=== PATIENT | female | born 1965 | race Caucasian/White ===

== ENCOUNTER → 2016-10-15 | Outpatient (CLI) | payer BC ==
--- NOTE | 2016-10-20 07:55 | MM ---
Reason for exam: screening (asymptomatic). Last mammogram was performed 1 year ago. History: Patient is postmenopausal. Family history of premenopausal breast cancer in sister at age 49. Took hormonal contraceptives for 6 years beginning at age 25. Physical Findings: A clinical breast exam by your physician is recommended on an annual basis and results should be correlated with mammographic findings. MG Screening Mammo w CAD Bilateral CC and MLO view(s) were taken. Prior study comparison: October 10, 2015, bilateral MG screening mammo w CAD. August 31, 2014, bilateral MG screening mammo w CAD. June 08, 2011, bilateral digital screening mammo w/CAD. The breast tissue is heterogeneously dense. This may lower the sensitivity of mammography. No significant changes when compared with prior studies. ASSESSMENT: Negative, BI-RAD 1 RECOMMENDATION: Routine screening mammogram of both breasts in 1 year.
== END | disposition home or self-care (01) ==
LOC: RADMAMWWP 15:07
PROVIDERS: ATTEND Obstetrics & Gynecology
DX: Z12.31 Encounter for screening mammogram for malignant neoplasm of breast (principal); Z80.3 Family history of malignant neoplasm of breast

== ENCOUNTER → 2017-10-27 | Outpatient (CLI) | payer BC ==
--- NOTE | 2017-10-27 11:43 | XR ---
EXAMINATION TYPE: XR elbow complete LT DATE OF EXAM: 10/27/2017 COMPARISON: NONE HISTORY: Pain FINDINGS: Three views of the elbow demonstrate no pathologic joint effusion. The osseous structures are intact . There is no acute fracture or dislocation. Tiny bony density is seen adjacent to the medial aspec t of the joint which could be related the patient's history of previous trauma. IMPRESSION: 1. No acute fracture or dislocation. If symptoms persist follow-up study in 7 to 10 days could be ob tained.
== END | disposition home or self-care (01) ==
LOC: RADXRMAIN 11:24
PROVIDERS: ATTEND Family Medicine
DX: M25.522 Pain in left elbow (principal)

== ENCOUNTER → 2017-11-29 | Outpatient (CLI) | payer BC ==
--- NOTE | 2017-11-30 13:57 | MM ---
Reason for exam: screening (asymptomatic). Last mammogram was performed 1 year and 1 month ago. History: Patient is postmenopausal. Family history of premenopausal breast cancer in sister at age 49. Took hormonal contraceptives for 6 years beginning at age 25. Physical Findings: A clinical breast exam by your physician is recommended on an annual basis and results should be correlated with mammographic findings. MG Screening Mammo w CAD Bilateral CC and MLO view(s) were taken. Prior study comparison: October 15, 2016, bilateral MG screening mammo w CAD. October 10, 2015, bilateral MG screening mammo w CAD. The breast tissue is heterogeneously dense. This may lower the sensitivity of mammography. There is no discrete abnormality. ASSESSMENT: Negative, BI-RAD 1 RECOMMENDATION: Routine screening mammogram of both breasts in 1 year.
== END | disposition home or self-care (01) ==
LOC: RADMAMWWP 14:49
PROVIDERS: ATTEND Family Medicine
DX: Z12.31 Encounter for screening mammogram for malignant neoplasm of breast (principal)
CPT/HCPCS: 77067

== ENCOUNTER → 2019-08-09 | Outpatient (CLI) | payer BC ==
[~2019-08-09] MED LIST: REGADENOSON 0.4 MG/5 ML SYRINGE IV ONE
--- NOTE | 2019-08-09 08:08 | US ---
"EXAMINATION TYPE: US gallbladder DATE OF EXAM: 08/09/2019 COMPARISON: NONE CLINICAL HISTORY: R07.9 Chest pain, R10.11 R upper quad pain. EXAM MEASUREMENTS: Liver Length: 18.3 cm Gallbladder Wall: 0.7 cm CBD: 0.5 cm Right Kidney: 10.1 x 4.2 x 4.6 cm Pancreas: Tail obscured by overlying bowel gas, visualized portions appear wnl Liver: Heterogeneous. Measuring upper limits of normal Gallbladder: Multiple stones visualized. Wall appears thickened with some possible pericholecystic f luid Evidence for sonographic Jacobo's sign: No CBD: wnl Right Kidney: No hydronephrosis or masses seen IMPRESSION: Cholelithiasis with gallbladder wall thickening and trace pericholecystic fluid questione d however the common bile duct is within normal limits of size therefore findings are cortical for ac [place] cholecystitis. Correlate with serum laboratory values and physical examination as the sonographic Jacobo sign is negative. A Yellow level critical message alert has been initiated for Arya Jones MD via the [employer] 36 0 | Critical Results System on 08/09/2019 8:05 AM. This message alert has been sent to Arya Jones MD via the preferences provided by the clinician for the receipt of Radiology Critical Findings. [facility] ID [id number]."
--- NOTE | 2019-08-09 11:25 | NM ---
"EXAMINATION TYPE: NM stress lexiscan cardiolite DATE OF EXAM: 08/09/2019 COMPARISON: NONE HISTORY: Chest pain TECHNIQUE: After the intravenous administration of 10.15 mCi Tc 99m Sestamibi - Cardiolite resting S PECT images acquired 45 minutes post injection. The patient received 0.4mg Lexiscan, 27.4 mCi Tc 99m Sestamibi - Stress images obtained [address] injection FINDINGS: Review of stress and rest SPECT images demonstrates decreased radio pharmaceutical uptake along the a nterior wall left ventricle on stress and rest images, level cardiac apex there is some decreased upt aneesh on stress as compared to rest images. Gated analysis shows normal wall motion with an estimated left ventricular ejection fraction of 56 %. 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 This message alert has been sent to Arya oJnes MD via the preferences provided by the clinician for the receipt of Radiology Critical Findings. [facility] [id number]."
--- NOTE | 2019-08-09 18:14 | EST ---
EXERCISE STRESS AGE: 53 SEX: F HT: WT: PROTOCOL: Lexiscan Cardiolite Stress Test HEART RATE REST: 71 BLOOD PRESSURE REST: 140/90 MAXIMUM HEART RATE ACHIEVED: 95 MAXIMUM BLOOD PRESSURE: 140/90 INDICATION: Chest pain. CLINICAL INFORMATION: STRESS DATA: Heart rate is 71, blood pressure is 140/90 mmHg. Baseline EKG showed sinus mechanism; 0.4 mg of Lexiscan given over 15 seconds per protocol. Max heart rate was 95 beats per minute. Maximum pressure was 140/90 mmHg. Clinically, the patient did not have any symptoms, and the EKG did not show any significant ST- or T-wave abnormalities concerning for ischemia. CONCLUSION: 1. Nondiagnostic electrocardiogram stress testing in response to Lexiscan. 2. Please follow up on the Cardiolite portion on separate report from Radiology Department. MMODL / IJN: [id number] /
== END | disposition home or self-care (01) ==
LOC: RADUSWWP 07:25
PROVIDERS: ATTEND Family Medicine
DX: K80.20 Calculus of gallbladder without cholecystitis without obstruction (principal); R07.9 Chest pain, unspecified
CPT/HCPCS: 93017; 76705; 78452; A9500; J2785

== ENCOUNTER 2019-08-10 15:40 | Observation (INO) | payer BC ==
--- NOTE | 2019-08-10 17:35 | XR ---
EXAMINATION TYPE: XR chest 1V portable DATE OF EXAM: 08/10/2019 COMPARISON: 06/15/2019 HISTORY: Short of breath TECHNIQUE: FINDINGS: Heart and mediastinum are normal. Lungs are clear. Diaphragm is normal. Bony thorax appears normal. IMPRESSION: Normal chest.
[2019-08-10 17:43] LABS: Basophils % (A) 1 %; Eosinophils # (A) 0.2 k/uL (0-0.7); Eosinophils % (A) 4 %; HCT 37.8 % (34.0-46.0); HGB 12.3 gm/dL (11.4-16.0); Lymphocytes % (A) 35 %; MCH 27.2 pg (25.0-35.0); MCHC 32.4 g/dL (31.0-37.0); MCV 83.9 fL (80.0-100.0); Mean Platelet Volume 6.8; Monocytes # (A) 0.3 k/uL (0-1.0); Monocytes % (A) 5 %; Neutrophils # (A) 3.1 k/uL (1.3-7.7); Neutrophils % (A) 53 %; Platelet Count 321 k/uL (150-450); RBC 4.51 m/uL (3.80-5.40); WBC 5.8 k/uL (3.8-10.6)
[2019-08-10 17:52] LABS: Albumin 4.5 g/dL (3.5-5.0); Calcium 9.5 mg/dL (8.4-10.2); Potassium 4.5 mmol/L (3.5-5.1); Total Bilirubin 0.3 mg/dL (0.2-1.3); Total Protein 7.5 g/dL (6.3-8.2)
[2019-08-10] MEDS: SODIUM CHLORIDE 0.9% 1,000 ML IV SCH (18:17)
[2019-08-10 19:12] LABS: Appearance,Urine Clear (Clear); Bilirubin,Urine Negative (Negative); Blood,Urine Negative (Negative); Color,Urine Light Yellow; Glucose,Urine (UA) Negative (Negative); Ketones,Urine Negative (Negative); Leukocyte Esterase,Urine Negative (Negative); Nitrite,Urine Negative (Negative); PH, Urine 6.5 (5.0-8.0); Protein,Urine Negative (Negative); Specific Gravity,Urine 1.018 (1.001-1.035); Urobilinogen,Urine <2.0 mg/dL (<2.0)
[2019-08-10] MEDS: HYDROcodone/APAP 7.5-325MG 1 EACH TAB PO SCH (21:14)
[2019-08-11] MEDS: ALBUTEROL NEBULIZED 2.5 MG/3 ML INHALATION PRN ×2 (02:23→15:49)
[2019-08-11] MEDS: SODIUM CHLORIDE 0.9% 1,000 ML IV SCH ×2 (06:21→21:31)
[2019-08-11] MEDS ORDERED: SODIUM CHLORIDE 0.9% 1,000 ML IV ONE (08:24)
[2019-08-11] MEDS: MONTELUKAST 10 MG TAB PO SCH (09:16)
[2019-08-11] MEDS ORDERED: NITROGLYCERIN SL TABS 0.4 MG TAB SUBLINGUAL PRN (09:43)
[2019-08-11] MEDS ORDERED: ATORVASTATIN 80 MG TAB PO STA (09:43)
[2019-08-11] MEDS ORDERED: ASPIRIN 325 MG TAB PO STA (09:43)
[2019-08-11] MEDS ORDERED: ALPRAZolam 0.25 MG TAB PO PRN (09:43)
[2019-08-11] MEDS ORDERED: ALPRAZolam 0.5 MG TAB PO PRN (09:43)
[2019-08-11] MEDS ORDERED: ACETAMINOPHEN IV (For NPO) 1,000 MG in EMPTY BAG 1 BAG IVPB STA (09:49)
--- NOTE | 2019-08-11 09:51 | P.CRDCN ---
History of Present Illness History of present illness: HISTORY OF PRESENTING ILLNESS This is a pleasant 53-year-old female past medical history significant for asthma and borderline hypertension not currently on medication. She denies prior history of coronary artery disease and does not follow in the office with a health and wellness director. We have been asked to see in consultation for abnormal stress test and chest pain. She was sent to the hospital on advice of her primary care physician secondary to an abnormal stress test. She underwent a Lexiscan stress test August 08 revealing decreased radiopharmaceutical uptake along the anterior wall of the LV and stress and rest with evidence of decreased uptake on stress. Suggestive of prior infarct along with pharmacologically induced selena-infarct LV ischemia. She states she was sent for the stress test on advice of her PCP secondary to an episode of chest discomfort she experienced last week. She states she was at work after coming back from lunch and felt a pressure burning sensation in the upper anterior mid sternal region of the chest. There was no radiation through to the back, down the arm, into the neck or the jaw. The discomfort persisted for approximately 3-4 hours with normal aggravating or alleviating factors. She had no associated shortness of breath, nausea, v omiting, diaphoresis, palpitations or dizziness. She has had no further episodes of chest discomfort since that time. She also had no associated abdominal pain. She states she does have a history of hiatal hernia status post Elizabet fundoplication. DIAGNOSTICS EKG reveals sinus mechanism with nonspecific abnormalities noted in the inferior leads. Chest x-ray reveals no evidence of acute cardiopulmonary process. Laboratory reviewed, CBC unremarkable, sodium 140, potassium 4.5, creatinine 1.17 with a GFR 54, cardiac enzymes negative 1. She takes no daily cardiac medications. REVIEW OF SYSTEMS At the time of my exam: CONSTITUTIONAL: Denies fever or chills. CARDIOVASCULAR: Denies chest pain, shortness of breath, orthopnea, PND or palpitations. RESPIRATORY: Denies cough. GASTROINTESTINAL: Denies abdominal pain, diarrhea, constipation, nausea or vomiting. MUSCULOSKELETAL: Denies myalgias. NEUROLOGIC: Denies numbness, tingling or weakness. ENDOCRINE: Denies fatigue, weight change, polydipsia or polyurina. GENITOURINARY: Denies burning, hematuria or urgency with micturation. HEMATOLOGIC: Denies history of anemia or bleeding. PHYSICAL EXAMINATION Blood pressure 160/90 heart rate 78 afebrile and maintaining oxygen saturation on room air. CONSTITUTIONAL: No apparent distress. HEENT: Head is normocephalic. Pupils are equal, round. Sclerae anicteric. Mucous membranes of the mouth are moist. No JVD. No carotid bruit. CHEST EXAMINATION: Lungs are clear to auscultation. No chest wall tenderness is noted on palpation or with deep breathing. HEART EXAMINATION: Regular rate and rhythm. S1, S2 heard. No murmurs, gallops or rub. ABDOMEN: Soft, nontender. Positive bowel sounds. EXTREMITIES: 2+ peripheral pulses, no lower extremity edema and no calf tenderness. NEUROLOGIC EXAMINATION: Patient is awake, alert and oriented x3. ASSESSMENT Chest pain with abnormal nuclear stress test History of asthma Family history of premature coronary artery disease with her brother suffering myocardial infarction causing PLAN Recommend proceeding with coronary angiography to assess for underlying coronary artery disease given her symptoms and abnormal stress test. I have discussed the risks, benefits and alternative therapies for the above-mentioned procedure and for both sedation/analgesia as well as necessary blood product administration, if indicated, as they pertain to this patient. The patient has indicated understanding and acceptance of the risks and procedures discussed. Questions have been answered appropriately and she is agreeable to move forward with the above-stated procedure. Obtain 2-D echocardiogram and Doppler study to assess cardiac structure and fun ction. Further recommendations to follow based upon clinical course. Thank you kindly for this consultation. Nurse Practitioner note has been reviewed, I agree with a documented findings and plan of care. Patient was seen and examined. Past Medical History Past Medical History: Asthma, GERD/Reflux, Hypertension Additional Past Medical History / Comment(s): doctor watching BP-no rx, HIATAL HERNIA History of Any Multi-Drug Resistant Organisms: MRSA Date of last positivie culture/infection: 7-10 yrs ago MDRO Source:: boil on buttocks Past Surgical History: Bladder Surgery, Orthopedic Surgery, Tubal Ligation, Uterine Ablation Additional Past Surgical History / Comment(s): eri carpal tunnel, cysts removed from both hands, EGD, D & C IN OCTOBER 2015 Past Anesthesia/Blood Transfusion Reactions: No Reported Reaction Past Psychological History: No Psychological Hx Reported Smoking Status: Never smoker Past Alcohol Use History: Occasional Past Drug Use History: None Reported - Past Family History Mother Family Medical History: Cancer, Diabetes Mellitus Sister(s) Family Medical History: Cancer Medications and Allergies Home Medications Medication Instructions Recorded Confirmed Type Albuterol Inhaler [Ventolin Hfa 2 puff INHALATION RT-Q6H PRN 08/29/15 08/10/19 History Inhaler] Cholecalciferol [Vitamin D3 (25 1,000 unit PO DAILY 08/29/15 08/10/19 History Mcg = 1000 Iu)] Ibuprofen [Motrin] 800 mg PO TID PRN 08/29/15 08/10/19 History Montelukast Sodium [Singulair] 10 mg PO DAILY 01/30/16 08/10/19 History Albuterol Nebulized [Ventolin 2.5 mg INHALATION RT-QID PRN 06/15/19 08/10/19 History Nebulized] Cyanocobalamin (Vitamin B-12) 1,000 mcg PO DAILY 06/15/19 08/10/19 History [Vitamin B-12] HYDROcodone/APAP 7.5-325MG [[place] 1 tab PO TID 06/15/19 08/10/19 History 7.5-325] Allergies Allergy/AdvReac Type Severity Reaction Status Date / Time No Known Allergies Allergy Verified 08/10/19 20:26 Physical Exam Vitals: Vital Signs Temp Pulse Pulse Resp BP Pulse Ox 08/11/19 09:07 98.4 F 78 16 160/90 97 08/11/19 07:27 98 F 64 16 144/88 96 08/11/19 02:37 60 08/11/19 02:21 60 08/11/19 02:11 97.4 F L 61 18 126/86 96 08/11/19 00:00 16 08/10/19 21:13 98.3 F 66 18 121/78 96 08/10/19 20:10 70 18 Intake and Output 08/10/19 08/11/19 08/11/19 22:59 06:59 14:59 Other: Voiding Method Toilet Toilet Toilet # Voids 1 Weight 86.636 kg Results 08/10/19 17:07 08/10/19 17:07 Cardiac Enzymes 08/10/19 08/10/19 Range/Units 17:07 17:16 AST 25 (14-36) U/L Troponin I <0.012 (0.000-0.034) ng/mL CBC 03/19/20 Range/Units 17:07 WBC 5.8 (3.8-10.6) k/uL RBC 4.51 (3.80-5.40) m/uL Hgb 12.3 (11.4-16.0) gm/dL Hct 37.8 (34.0-46.0) % Plt Count 321 (150-450) k/uL Comprehensive Metabolic Panel 08/10/19 Range/Units 17:07 Sodium 140 (137-145) mmol/L Potassium 4.5 (3.5-5.1) mmol/L Chloride 108 H (98-107) mmol/L Carbon Dioxide 24 (22-30) mmol/L BUN 22 H (7-17) mg/dL Creatinine 1.17 H (0.52-1.04) mg/dL Glucose 107 H (74-99) mg/dL Calcium 9.5 (8.4-10.2) mg/dL AST 25 (14-36) U/L ALT 18 (4-34) U/L Alkaline Phosphatase 59 (38-126) U/L Total Protein 7.5 (6.3-8.2) g/dL Albumin 4.5 (3.5-5.0) g/dL Current Medications Generic Name Dose Route Start Last Admin Trade Name Freq PRN Reason Stop Dose Admin Hydrocodone Bitart/Acetaminophen 1 each 08/10/19 22:00 08/10/19 21:14 [place] 7.5-325 PO Not Given TID ROSITA Albuterol Sulfate 2.5 mg 08/10/19 17:09 08/11/19 02:23 Ventolin Nebulized INHALATION 2.5 mg RT-QID PRN Administration Shortness Of Breath Sodium Chloride 1,000 mls @ 75 mls/hr 08/10/19 16:30 08/11/19 06:21 Saline 0.9% IV 75 mls/hr .[id number] ROSITA Administration Cefazolin Sodium 1,000 mg/ 50 mls @ 100 mls/hr 08/10/19 17:00 08/10/19 23:51 Sodium Chloride IVPB 100 mls/hr Q8HR ROSITA Administration Montelukast Sodium 10 mg 08/11/19 09:00 08/11/19 09:16 Singulair PO Not Given DAILY ROSITA Intake and Output 08/10/19 08/11/19 08/11/19 22:59 06:59 14:59 Other: Voiding Method Toilet Toilet Toilet # Voids 1 Weight 86.636 kg 08/10/19 17:07 08/10/19 17:07
[2019-08-11] MEDS: HYDROcodone/APAP 7.5-325MG 1 EACH TAB PO SCH ×3 (10:11→21:33)
[2019-08-11] MEDS ORDERED: MIDAZOLAM 2 MG/2 ML VIAL IVP ONE (10:25)
[2019-08-11] MEDS ORDERED: LIDOCAINE 1% INJ 10MG/ML (20 ML MDV) SQ ONE (10:27)
[2019-08-11] MEDS ORDERED: VERAPAMIL SYRINGE (5 MG/10 ML) INTRAARTER ONE ×2 (10:28→10:35)
[2019-08-11] MEDS ORDERED: HEPARIN SODIUM 1,000 UN/ML (10ML VL) IV ONE (10:33)
[2019-08-11] MEDS ORDERED: HYDROmorphone 1 MG/ML 1 ML SYRINGE IVP ONE ×5 (10:33→14:50)
[2019-08-11] MEDS ORDERED: IV FLUID CONTINUATION 1,000 ML IV ONE (10:34)
[2019-08-11] MEDS ORDERED: IOPAMIDOL-370 125ML BTL INJ ONE (10:35)
[2019-08-11] MEDS ORDERED: RX INFO: IV CONTRAST WAS GIVEN 1 EACH MISC MISCELLANE PRN (10:40)
[2019-08-11] MEDS ORDERED: SODIUM CHLORIDE 0.9% 1,000 ML IV SCH (10:45)
--- NOTE | 2019-08-11 10:46 | P.PCN ---
Date of Procedure: 08/11/19 Operative Findings: CARDIAC CATHETERIZATION PERFORMING PHYSICIAN: Marquez Davila MD, RPVI PROCEDURE PERFORMED: 1. Selective right and left coronary angiogram 2. Left heart catheterization INDICATION: This is a pleasant 53-year-old female patient was very significant family history of coronary artery disease was experiencing symptoms of chest discomfort and she underwent myocardial perfusion imaging stress test and that revealed reversible defect anteriorly. Because of that heart catheterization was advised COMPLICATION: None APPROACH: Right radial artery LEVEL OF SEDATION: Moderate with sedation length of 17 minutes PROCEDURE DESCRIPTION: After obtaining an informed consent, the patient was brought to cardiac factory laborer. Local anesthesia was performed using lidocaine subcutaneously. The right radial artery was cannulated using Seldinger technique, the guidewire passed easily, following that we advanced a 5-Filipino sheath dilator assembly, the wire and dilator were removed and sheath was flushed. Following that, 2 mg of verapamil along with 5000 unit heparin were given. Selective right and left coronary angiogram using a 6-Filipino JR4 and JL 3.5 catheters. Following that we did left heart catheterization using 6-Filipino pigtail catheter. The procedure was completed there was no complication. SELECTIVE CORONARY ANGIOGRAM: The right coronary artery: Is a large caliber vessel and a dominant vessel. Its angiographically normal. Left main: It is a large caliber vessel. Its angiographically normal. Bifurcates into left circumflex and LAD The left circumflex: The LCx is a large caliber vessel and nondominant vessel. Its angiographically normal. Gives rises into 2 obtuse marginal branches and they appeared to be angiographically normal The left anterior descending artery: Is a large caliber vessel. Its angiographically normal. Gives rises into 2 diagonal branches and appeared to be angiographically normal HEMODYNAMICS: The LVEDP was 12-16 mmHg without significant gradient across aortic valve CONCLUSION: Normal coronary angiogram POSTPROCEDURE MANAGEMENT: 1. Medical treatment 2. Follow-up with the patient
--- NOTE | 2019-08-11 13:19 | P.GSCN ---
History of Present Illness Consult date: 08/11/19 Reason for Consult: Right upper quadrant pain History of present illness: This a 53-year-old female admitted to Dr. Arya Malik service. Patient was admitted for acute cholecystitis. Patient with recurrent pain. Her ultrasound shows evidence of cholelithiasis and thickened gallbladder wall and pericholecystic fluid. Past Medical History Past Medical History: Asthma, GERD/Reflux, Hypertension Additional Past Medical History / Comment(s): doctor watching BP-no rx, HIATAL HERNIA History of Any Multi-Drug Resistant Organisms: MRSA Year Discovered:: 7-10 yrs ago MDRO Source:: boil on buttocks Past Surgical History: Bladder Surgery, Orthopedic Surgery, Tubal Ligation, [place] rine Ablation Additional Past Surgical History / Comment(s): eri carpal tunnel, cysts removed from both hands, EGD, D & C IN OCTOBER 2015 Past Anesthesia/Blood Transfusion Reactions: No Reported Reaction Past Psychological History: No Psychological Hx Reported Smoking Status: Never smoker Past Alcohol Use History: Occasional Past Drug Use History: None Reported - Past Family History Mother Family Medical History: Cancer, Diabetes Mellitus Sister(s) Family Medical History: Cancer Medications and Allergies Home Medications Medication Instructions Recorded Confirmed Type Albuterol Inhaler [Ventolin Hfa 2 puff INHALATION RT-Q6H PRN 08/29/15 08/10/19 History Inhaler] Cholecalciferol [Vitamin D3 (25 1,000 unit PO DAILY 08/29/15 08/10/19 History Mcg = 1000 Iu)] Ibuprofen [Motrin] 800 mg PO TID PRN 08/29/15 08/10/19 History Montelukast Sodium [Singulair] 10 mg PO DAILY 01/30/16 08/10/19 History Albuterol Nebulized [Ventolin 2.5 mg INHALATION RT-QID PRN 06/15/19 08/10/19 History Nebulized] Cyanocobalamin (Vitamin B-12) 1,000 mcg PO DAILY 06/15/19 08/10/19 History [Vitamin B-12] HYDROcodone/APAP 7.5-325MG [[place] 1 tab PO TID 06/15/19 08/10/19 History 7.5-325] Allergies Allergy/AdvReac Type Severity Reaction Status Date / Time No Known Allergies Allergy Verified 08/10/19 20:26 Surgical - Exam Vital Signs Pulse Resp 70 18 08/10/19 20:10 08/10/19 20:10 - General well developed, well nourished, moderate distress - Eyes PERRL - ENT normal pinna - Neck no masses - Respiratory normal expansion - Cardiovascular Rhythm: regular - Abdomen Mild right quadrant pain Abdomen: soft Results - Labs 08/10/19 17:07 08/10/19 17:07 Abnormal Lab Results - Last 24 Hours (Table) 08/10/19 Range/Units 17:07 Chloride 108 H (98-107) mmol/L BUN 22 H (7-17) mg/dL Creatinine 1.17 H (0.52-1.04) mg/dL Glucose 107 H (74-99) mg/dL Diabetes panel 08/10/19 Range/Units 17:07 Sodium 140 (137-145) mmol/L Potassium 4.5 (3.5-5.1) mmol/L Chloride 108 H (98-107) mmol/L Carbon Dioxide 24 (22-30) mmol/L BUN 22 H (7-17) mg/dL Creatinine 1.17 H (0.52-1.04) mg/dL Glucose 107 H (74-99) mg/dL Calcium 9.5 (8.4-10.2) mg/dL AST 25 (14-36) U/L ALT 18 (4-34) U/L Alkaline Phosphatase 59 (38-126) U/L Total Protein 7.5 (6.3-8.2) g/dL Albumin 4.5 (3.5-5.0) g/dL Calcium panel 08/10/19 Range/Units 17:07 Calcium 9.5 (8.4-10.2) mg/dL Albumin 4.5 (3.5-5.0) g/dL Pituitary panel 08/10/19 Range/Units 17:07 Sodium 140 (137-145) mmol/L Potassium 4.5 (3.5-5.1) mmol/L Chloride 108 H (98-107) mmol/L Carbon Dioxide 24 (22-30) mmol/L BUN 22 H (7-17) mg/dL Creatinine 1.17 H (0.52-1.04) mg/dL Glucose 107 H (74-99) mg/dL Calcium 9.5 (8.4-10.2) mg/dL Adrenal panel 08/10/19 Range/Units 17:07 Sodium 140 (137-145) mmol/L Potassium 4.5 (3.5-5.1) mmol/L Chloride 108 H (98-107) mmol/L Carbon Dioxide 24 (22-30) mmol/L BUN 22 H (7-17) mg/dL Creatinine 1.17 H (0.52-1.04) mg/dL Glucose 107 H (74-99) mg/dL Calcium 9.5 (8.4-10.2) mg/dL Total Bilirubin 0.3 (0.2-1.3) mg/dL AST 25 (14-36) U/L ALT 18 (4-34) U/L Alkaline Phosphatase 59 (38-126) U/L Total Protein 7.5 (6.3-8.2) g/dL Albumin 4.5 (3.5-5.0) g/dL Assessment and Plan Assessment: Acute on chronic cholecystitis with cholelithiasis. Patient will undergo laparoscopic cholecystectomy.
[2019-08-11] MEDS ORDERED: PROPOFOL 10 MG/ML 20 ML VIAL IV ONE (13:31)
[2019-08-11] MEDS ORDERED: NEOSTIGMINE 1 MG/ML 10 ML VIAL ONE (13:31)
[2019-08-11] MEDS ORDERED: LIDOCAINE 1% INJ 10MG/ML (20 ML MDV) ONE (13:31)
[2019-08-11] MEDS ORDERED: fentaNYL (PF) 50 MCG/ML 2 ML AMP ONE (13:31)
[2019-08-11] MEDS ORDERED: GLYCOPYRROLATE 0.2 MG/ML 2 ML VIAL ONE (13:31)
[2019-08-11] MEDS ORDERED: MIDAZOLAM 2 MG/2 ML VIAL ONE (13:31)
[2019-08-11] MEDS ORDERED: ROCURONIUM BROMIDE 10 MG/ML 5 ML VIAL IV ONE ×2 (13:31)
[2019-08-11] MEDS ORDERED: SODIUM CHLORIDE 0.9% 50 ML with ceFAZolin 2,000 MG IV ONE ×2 (13:46)
[2019-08-11] MEDS ORDERED: BUPIVACAIN-EPI 0.25%-1:200,000 30 ML VIAL SQ ONE (13:50)
--- NOTE | 2019-08-11 13:59 | HP ---
HISTORY AND PHYSICAL A 53-year-old white female admitted to the hospital with acute cholecystitis, right upper quadrant pain, worse with any food intake. She is admitted for surgery for acute cholecystitis, placed on IV cefazolin. She also had abnormal stress test for which Cardiology was asked to see her and cleared her for surgery. HOME MEDICATIONS: See list. 14 POINT REVIEW OF SYSTEMS: As mentioned above. Vital signs stable, afebrile. CARDIOVASCULAR: S1, S2. LUNGS: Clear. GI: Soft. Tenderness to palpation, right upper quadrant. HEMATOLOGY: Negative Homans. PSYCH: Fair mood and affect. VASCULAR: Normal dorsalis pedis, posterior tibial, radial pulse. ASSESSMENT: Acute cholecystitis, abnormal stress test, asthma. Continue current treatment. Cardiology cleared, prior to code. Gallbladder surgery will be needed. Home medicines have been restarted. MMODL / IJN: [id number] /
[2019-08-11] MEDS ORDERED: HYDROmorphone 1 MG/ML 1 ML SYRINGE IM PRN (14:10)
--- NOTE | 2019-08-11 14:10 | P.OP ---
Date of Procedure: 08/11/19 Preoperative Diagnosis: Cholecystitis Postoperative Diagnosis: Cholecystitis Procedure(s) Performed: Laparoscopic cholecystectomy Anesthesia: MARIEL Surgeon: Mono Hurley Estimated Blood Loss (ml): 5 Pathology: other (Gallbladder) Condition: stable Disposition: PACU Description of Procedure: The patient was placed on the operating table. The patient received a general endotracheal tube anesthesia. The patients abdomen was prepped and draped in the usual sterile fashion. Through an infraumbilical stab incision, the fascia of the anterior abdominal wall was grasped with a pair of Kochers and then the Veress needle was placed in the peritoneal cavity. Position of the Veress needle was confirmed with positive drop test. The abdomen was then insufflated. After adequate insufflation, the 10 mm trocar was placed in the peritoneal cavity. Following this the laparoscope was placed in the peritoneal cavity. The patient was placed in the head-up, right side up position and then a 5 mm trocar was placed in the right lateral and right subcostal position under direct visualization. A 8 mm trocar was placed in the epigastric position. The gallbladder was grasped in the fundus and infundibulum. Traction on the gallbladder was placed in the lateral and the cephalad positions. The triangle of Calot was visualized.. The cystic duct was bluntly dissected until the union of the cystic duct and common bile duct was seen. A critical view of safety was achieved. The cystic duct was then divided and sealed with the Harmonic scissors. A PDS Endoloop was then placed throughout the cystic duct stump. The cystic artery divided and sealed with the Harmonic scissors. The gallbladder was then removed from the liver bed using Harmonic scissors. The gallbladder was then extracted through the epigastric port site. Operative field was checked for any bleeding spots and Harmonic scissors was used to coagulate the liver bed. The abdomen was irrigated. The trocars were removed. The skin was closed using interrupted 3-0 Vicryl suture. Dermabond dressing were applied. The patient tolerated the procedure well.
--- NOTE | 2019-08-11 15:42 | P.PN ---
Subjective Progress Note Date: 08/11/19 This is a 53-year-old female admitted with acute cholecystitis, recent abnormal outpatient stress test on August 08 and multiple other medical issues including history of Elizabet fundoplication. Evaluated by cardiology and surgery. Cardiac clearance for surgery pending- Patient is scheduled for cardiac catheterization this morning. Denies chest pain, palpitations or shortness of breath. Denies abdominal pain, but does complain of right posterior lower shoulder blade discomfort. Denies nausea or vomiting. Afebrile. Maintained on empiric IV antibiotics of ceftezolin. Objective - Vital Signs Vital signs: Vital Signs Temp 97.4 F L 08/11/19 14:22 Pulse 62 08/11/19 15:00 Resp 16 08/11/19 15:00 BP 120/68 08/11/19 15:00 Pulse Ox 99 08/11/19 15:00 Intake & Output 08/10/19 08/11/19 08/11/19 18:59 06:59 18:59 Intake Total 400 Output Total 20 Balance 380 Weight 86.636 kg Intake: IV 400 Output: Estimated Blood Loss 20 Other: Voiding Method Toilet Toilet # Voids 1 - Exam PHYSICAL EXAM: VITAL SIGNS: As above GENERAL: Sitting up in bed, teary-eyed, no acute distress HEENT: Conjunctivae normal. eyes normal. NECK: No JVD. No thyroid enlargement. No LNs CARDIOVASCULAR: S1, S2 regular.. No murmur RESPIRATION: Breath sounds diminished in the bases. No rhonchi or crackles. No bronchial breathing. ABDOMEN: Soft, nontender . No guarding. no masses palpable. No ascites, No hepatosplenomegaly.Bowel sounds heard. LEGS: No edema. no swelling PSYCHIATRY: Alert and oriented X3, mood and affect normal. NERVOUS SYSTEM: Cranial N 2-12 grossly normal. Moves all 4 limbs. No focal deficits. Strength and sensation grossly intact.. Skin: no rash - Labs CBC & Chem 7: 08/10/19 17:07 08/11/19 12:19 Labs: Abnormal Lab Results - Last 24 Hours (Table) 08/10/19 08/11/19 Range/Units 17:07 12:19 Chloride 108 H (98-107) mmol/L BUN 22 H (7-17) mg/dL Creatinine 1.17 H (0.52-1.04) mg/dL Glucose 107 H (74-99) mg/dL LDL Cholesterol, Calc 124 H (0-99) mg/dL Assessment and Plan Assessment: Acute cholecystitis Chest pain with Abnormal outpatient stress test, cardiac catheterization pending Family history of CAD, brother from [place] Chronic intermittent asthma, stable Plan: Continue on current medication regime ,monitoring and symptomatic treatment. Patient is scheduled for echo/cardiac catheterization this morning. Further surgical recommendations pending. Further recommendations to follow. The impression and plan of care has been dictated as directed. : I performed a history and examination of this patient, discussed the same with the dictator. I agree with the dictator's note ,documented as a scribe. Any additional findings or plans will be noted.
[2019-08-11] MEDS: HEPARIN SODIUM,PORCINE 5,000 UNIT/ML 1 ML VIAL SQ SCH (21:34)
[2019-08-12 03:29] VITALS: RESP 18
[2019-08-12 06:26] LABS: Basophils % (A) 1 %; Eosinophils # (A) 0.1 k/uL (0-0.7); Eosinophils % (A) 2 %; HCT 35.1 % (34.0-46.0); HGB 11.3 gm/dL (11.4-16.0); Lymphocytes # (A) 2.2 k/uL (1.0-4.8); Lymphocytes % (A) 37 %; MCH 27.2 pg (25.0-35.0); MCHC 32.2 g/dL (31.0-37.0); MCV 84.3 fL (80.0-100.0); Mean Platelet Volume 6.8; Monocytes # (A) 0.4 k/uL (0-1.0); Monocytes % (A) 7 %; Neutrophils % (A) 52 %; Platelet Count 281 k/uL (150-450); RBC 4.16 m/uL (3.80-5.40); RDW 12.9 % (11.5-15.5); WBC 5.8 k/uL (3.8-10.6)
[2019-08-12 06:37] LABS: Calcium 8.8 mg/dL (8.4-10.2); Potassium 4.1 mmol/L (3.5-5.1)
[2019-08-12] MEDS: MONTELUKAST 10 MG TAB PO SCH (09:03)
[2019-08-12] MEDS: HYDROcodone/APAP 7.5-325MG 1 EACH TAB PO SCH (09:03)
[2019-08-12] MEDS: SODIUM CHLORIDE 0.9% 1,000 ML IV SCH (09:03)
[2019-08-12] MEDS: HEPARIN SODIUM,PORCINE 5,000 UNIT/ML 1 ML VIAL SQ SCH (09:04)
--- NOTE | 2019-08-12 10:11 | P.PN ---
Subjective Progress Note Date: 08/12/19 Is a 53-year-old female with past medical history of borderline hypertension, asthma, underwent a stress test which came back to be positive and subsequent to that patient underwent a cardiac catheterization which revealed normal coronary arteries. Subsequent to that patient underwent laparoscopic cholecystectomy. She was seen and examined this morning, feeling well, denies any chest pain. She's been up ambulating a few times this morning without any problems. Blood pressure 118/70 with a heart rate in the 70s, 96% on room air. White blood cell count 5.8, hemoglobin 11.3, platelet count 281. Sodium 137, potassium 4.1, BUN 16, creatinine 0.9. Objective - Vital Signs Vital signs: Vital Signs Temp 98.3 F 08/12/19 03:26 Pulse 71 08/12/19 03:26 Resp 18 08/12/19 03:26 BP 118/72 08/12/19 03:26 Pulse Ox 96 08/12/19 03:26 Intake & Output 08/11/19 08/12/19 08/12/19 18:59 06:59 18:59 Intake Total 400 1235 Output Total 20 850 Balance 380 385 Weight 109 kg Intake: IV 400 Intake, IV Titration 875 Amount Sodium Chloride 0.9% 1, 825 000 ml @ 75 mls/hr IV . [id number] ROSITA Rx#:[id number] ceFAZolin 1,000 mg In 50 Sodium Chloride 0.9% 50 ml @ 100 mls/hr IVPB Q8HR [facility] Rx#:[id number] Oral 360 Output: Urine 850 Estimated Blood Loss 20 Other: Voiding Method Toilet - Exam Blood pressure 160/90 heart rate 78 afebrile and maintaining oxygen saturation on room air. CONSTITUTIONAL: No apparent distress. HEENT: Head is normocephalic. Pupils are equal, round. Sclerae anicteric. Mucous membranes of the mouth are moist. No JVD. No carotid bruit. CHEST EXAMINATION: Lungs are clear to auscultation. No chest wall tenderness is noted on palpation or with deep breathing. HEART EXAMINATION: Regular rate and rhythm. S1, S2 heard. No murmurs, gallops or rub. ABDOMEN: Soft, nontender. Positive bowel sounds. EXTREMITIES: 2+ peripheral pulses, no lower extremity edema and no calf tenderness. Right radial site clean and dry, good distal pulse NEUROLOGIC EXAMINATION: Patient is awake, alert and oriented x3. - Labs CBC & Chem 7: 08/12/19 05:50 08/12/19 05:50 Labs: Abnormal Lab Results - Last 24 Hours (Table) 08/11/19 08/12/19 08/12/19 Range/Units 12:19 05:50 05:50 Hgb 11.3 L (11.4-16.0) gm/dL Chloride 109 H (98-107) mmol/L LDL Cholesterol, Calc 124 H (0-99) mg/dL Assessment and Plan Plan: Assessment and plan #1 chest pain, stress test positive, status post cardiac catheterization which revealed normal coronary arteries #2 cholecystitis status post lap crystal #3 strong family history of premature coronary artery disease Plan From cardiology's perspective, the patient may be able to be discharged home today or when cleared by surgery and primary. A follow-up appointment will be made with Dr. Hawkins in the office post discharge. DNP note has been reviewed, I agree with a documented findings and plan of care. Patient was seen and examined.
--- NOTE | 2019-08-12 11:03 | ECHOF ---
Referral Reason:abnormal stress test, cp MEASUREMENTS -------- HEIGHT: 170.2 cm WEIGHT: 86.6 kg BP: 118/72 RVIDd: 3.3 cm (< 3.3) IVSd: 1.1 cm (0.6 - 1.1) LVIDd: 3.9 cm (3.9 - 5.3) LVPWd: 1.3 cm (0.6 - 1.1) IVSs: 1.3 cm LVIDs: 2.4 cm LVPWs: 1.7 cm LAESV Index (A-L): 19.90 ml/m Ao Diam: 2.6 cm (2.0 - 3.7) AV Cusp: 1.7 cm (1.5 - 2.6) MV EXCURSION: 14.100 mm (> 18.000) MV EF SLOPE: 69 mm/s (70 - 150) EPSS: 0.1 cm MV E Rory: 0.99 m/s MV DecT: 123 ms MV A Rory: 1.11 m/s MV E/A Ratio: 0.89 RAP: 5.00 mmHg RVSP: 39.23 mmHg FINDINGS -------- Sinus rhythm. This was a technically adequate study. The left ventricular size is normal. There is mild concentric left ventricular hypertrophy. Overa ll left ventricular systolic function is normal with, an EF between 55 - 60 %. The diastolic fillin g pattern is normal for the age of the patient 9.59. The right ventricle is mildly enlarged. Normal LA size by volume 22+/-6 ml/m2. The right atrial size is normal. Mobile interatrial septum. The aortic valve is trileaflet, and appears structurally normal. No aortic stenosis or regurgitation. The mitral valve is normal. There is trace to mild mitral regurgitation. Mild tricuspid regurgitation present. There is mild pulmonary hypertension. The right ventricular systolic pressure, as measured by Doppler, is 39.23mmHg. Trace/mild (physiologic) pulmonic regurgitation. The aortic root size is normal. IVC Not well visulized. There is no pericardial effusion. CONCLUSIONS -------- 1. Sinus rhythm. 2. This was a technically adequate study. 3. The left ventricular size is normal. 4. There is mild concentric left ventricular hypertrophy. 5. Overall left ventricular systolic function is normal with, an EF between 55 - 60 %. 6. The diastolic filling pattern is normal for the age of the patient 9.59 7. The right ventricle is mildly enlarged. 8. Normal LA size by volume 22+/-6 ml/m2. 9. Mobile interatrial septum. 10. The aortic valve is trileaflet, and appears structurally normal. No aortic stenosis or regurgitat ion. 11. There is trace to mild mitral regurgitation. 12. Mild tricuspid regurgitation present. 13. There is mild pulmonary hypertension. 14. Trace/mild (physiologic) pulmonic regurgitation. 15. IVC Not well visulized. 16. There is no pericardial effusion. CHIEF SUBSTATION OPERATOR: Elzbieta Lantigua RDCS
--- NOTE | 2019-08-12 11:15 | P.PN ---
Progress Note - Text Progress Note Date: 08/12/19 The patient is postoperative day 1 from laparoscopic cholecystectomy for acute cholecystitis. Patient is doing quite well. Her incision sites are clean and intact. She will be discharged home today she'll follow-up one week.
[2019-08-12 12:49] VITALS: BP 152/85; PULSE 68; TEMP 97.9
== END 2019-08-12 14:23 | disposition home or self-care (01) ==
LOC: 4SSUR 15:47 → 3SCARD 08-11 10:57
PROVIDERS: ADMIT Family Medicine; ATTEND Family Medicine
DX: K80.12 Calculus of gallbladder with acute and chronic cholecystitis without obstruction (principal); R07.89 Other chest pain; J45.20 Mild intermittent asthma, uncomplicated; Z79.899 Other long term (current) drug therapy; Z82.49 Family history of ischemic heart disease and other diseases of the circulatory system; Z83.3 Family history of diabetes mellitus; R03.0 Elevated blood-pressure reading, without diagnosis of hypertension; R94.39 Abnormal result of other cardiovascular function study; K21.9 Gastro-esophageal reflux disease without esophagitis; Z86.14 Personal history of Methicillin resistant Staphylococcus aureus infection; Z80.9 Family history of malignant neoplasm, unspecified; Z79.1 Long term (current) use of non-steroidal anti-inflammatories (NSAID); Z98.51 Tubal ligation status
CPT/HCPCS: 47562; 94640 ×2; 93306; 93458; 88304; 80061; 80053; 80048; 82565; 84484; 85025 ×2; 81003; 71045; G0378 ×4; G0379; C1769; C1894; J2250; J1644 ×3; J2710; J0690 ×3; J2001; J3010; J1170; J2704; Q9967

== ENCOUNTER → 2020-02-06 | Outpatient (CLI) | payer BC ==
--- NOTE | 2020-02-08 14:21 | MM ---
Reason for exam: screening (asymptomatic). Last mammogram was performed 2 years and 2 months ago. History: Patient is postmenopausal. Family history of premenopausal breast cancer in sister at age 49 and breast cancer in sister at age 59. Took hormonal contraceptives for 6 years beginning at age 25. Physical Findings: A clinical breast exam by your physician is recommended on an annual basis and results should be correlated with mammographic findings. MG Screening Mammo w CAD Bilateral CC and MLO view(s) were taken. Prior study comparison: November 29, 2017, bilateral MG screening mammo w CAD. October 15, 2016, bilateral MG screening mammo w CAD. The breast tissue is heterogeneously dense. This may lower the sensitivity of mammography. No significant changes when compared with prior studies. ASSESSMENT: Benign, BI-RAD 2 RECOMMENDATION: Routine screening mammogram of both breasts in 1 year.
== END | disposition home or self-care (01) ==
LOC: RADMAMWWP 16:29
PROVIDERS: ATTEND Obstetrics & Gynecology
DX: Z12.31 Encounter for screening mammogram for malignant neoplasm of breast (principal)
CPT/HCPCS: 77067

== ENCOUNTER → 2022-02-19 | Outpatient (CLI) | payer BC ==
--- NOTE | 2022-02-20 07:28 | MM ---
Reason for Exam: Screening (asymptomatic). Last mammogram was performed 2 year(s) and 0 month(s) ago. Patient History: Menarche at age 14. First Full-Term at age 16. Postmenopausal. Hormonal Contraceptives for 6 years from age 25 until age 31. Sister had breast cancer, age 49. Sister had breast cancer, age 49. Sister had breast cancer, age 59. Risk Values: [place] 5 year model risk: 5.6%. NCI Lifetime model risk: 33.5%. Prior Study Comparison: 10/15/2016 Bilateral Screening Mammogram, [facility]. 11/29/2017 Bilateral Screening Mammogram, [facility]. 02/06/2020 Bilateral Screening Mammogram, [facility]. Tissue Density: The breast tissue is heterogeneously dense. This may lower the sensitivity of mammography. Findings: Analyzed By CAD. There is no suspicious group of microcalcifications or new suspicious mass in either breast. Overall Assessment: Benign, BI-RAD 2 Management: Screening Mammogram of both breasts in 1 year. A clinical breast exam by your physician is recommended on an annual basis and results should be correlated with mammographic findings. Electronically signed and approved by: Natan Pastor M.D. Radiologis
== END | disposition home or self-care (01) ==
LOC: RADMAMWWP 15:06
PROVIDERS: ATTEND Family Medicine
DX: Z12.31 Encounter for screening mammogram for malignant neoplasm of breast (principal); Z80.3 Family history of malignant neoplasm of breast; Z78.0 Asymptomatic menopausal state
CPT/HCPCS: 77067

== ENCOUNTER 2023-08-23 08:00 | Observation (INO) | payer BC ==
--- NOTE | 2023-08-23 08:33 | ED ---
General Adult HPI - General Chief complaint: Abdominal Pain Stated complaint: NIC Time Seen by Provider: 08/23/23 08:05 Source: patient, EMS, RN notes reviewed, old records reviewed Mode of arrival: EMS Limitations: no limitations - History of Present Illness Initial comments: This is a 57-year-old female who presents to the emergency department stating that about 10 days ago she had some blood in her urine and had little different discomfort while urinating. Patient states after few days it seemed to go away. Patient states after that the whole week she was very tired and sleeping a lot more than normal. Patient states over this past weekend she started having some discomfort in the right CVA area and when she was at work he got a little worse and she felt like she could not catch her breath and so she had to take some deeper breaths. Patient denies any chest pain or upper back pain. Patient denies any abdominal pain during the session however she states on Wednesday she was having some pain in the right upper quadrant area. Patient denies any fever or chills. Patient has any cough congestion or sore throat. Patient currently is only complaining of a little bit of CVA tenderness. - Related Data Home Medications Medication Instructions Recorded Confirmed Albuterol Inhaler [Ventolin Hfa 2 puff INHALATION RT-Q6H PRN 08/29/15 08/23/23 Inhaler] Ibuprofen [Motrin] 800 mg PO TID PRN 08/29/15 08/23/23 Montelukast Sodium [Singulair] 10 mg PO DAILY 01/30/16 08/23/23 HYDROcodone/APAP 7.5-325MG [[place] 1 tab PO TID PRN 06/15/19 08/23/23 7.5-325] Aspirin EC [Ecotrin Low Dose] 81 mg PO DAILY 08/23/23 08/23/23 Lisinopril-Hctz 10-12.5 mg 1 tab PO DAILY 08/23/23 08/23/23 [Zestoretic 10-12.5] Meloxicam [Mobic] 7.5 mg PO DAILY 08/23/23 08/23/23 PARoxetine [Paxil] 20 mg PO DAILY 08/23/23 08/23/23 Progesterone, Micronized 100 mg PO DAILY 08/23/23 08/23/23 [Progesterone] estradioL [Estrace] 0.5 mg PO DAILY 08/23/23 08/23/23 Allergies Allergy/AdvReac Type Severity Reaction Status Date / Time finerenone [From Kerendia] Allergy Rash/Hives Verified 08/23/23 10:55 all over body Review of Systems ROS Statement: Those systems with pertinent positive or pertinent negative responses have been documented in the HPI. ROS Other: All systems not noted in ROS Statement are negative. Past Medical History Past Medical History: Asthma, GERD/Reflux, Hypertension Additional Past Medical History / Comment(s): doctor watching BP-no rx, HIATAL HERNIA History of Any Multi-Drug Resistant Organisms: MRSA Date of last positivie culture/infection: 7-10 yrs ago MDRO Source:: boil on buttocks Past Surgical History: Bladder Surgery, Orthopedic Surgery, Tubal Ligation, Uterine Ablation Additional Past Surgical History / Comment(s): eri carpal tunnel, cysts removed from both hands, EGD, D & C IN OCTOBER 2015 Past Anesthesia/Blood Transfusion Reactions: No Reported Reaction Past Psychological History: No Psychological Hx Reported Smoking Status: Never smoker Past Alcohol Use History: Occasional Past Drug Use History: None Reported - Past Family History Mother Family Medical History: Cancer, Diabetes Mellitus Sister(s) Family Medical History: Cancer General Exam - General Exam Comments Initial Comments: GENERAL: Patient is well-developed and well-nourished. Patient is nontoxic and well-hydr ated and is in no acute distress. ENT: Neck is soft and supple. No significant lymphadenopathy is noted. Oropharynx is clear. Moist mucous membranes. Neck has full range of motion without eliciting any pain. EYES: The sclera were anicteric and conjunctiva were pink and moist. Extraocular mo vements were intact and pupils were equal round and reactive to light. Eyelids were unremarkable. PULMONARY: Unlabored respirations. Good breath sounds bilaterally. No audible rales rhonchi or wheezing was noted. CARDIOVASCULAR: There is a regular rate and rhythm without any murmurs gallops or rubs. ABDOMEN: Soft and nontender with normal bowel sounds. SKIN: Skin is clear with no lesions or rashes and otherwise unremarkable. NEUROLOGIC: Patient is alert and oriented x3. Cranial nerves II through XII are grossly intact. Motor and sensory are also intact. Normal speech, volume and content. Symmetrical smile. MUSCULOSKELETAL: Normal extremities with adequate strength and full range of motion. Negative CVA tenderness on palpation LYMPHATICS: No significant lymphadenopathy is noted PSYCHIATRIC: Normal psychiatric evaluation. Limitations: no limitations Course Vital Signs 08/23/23 08/23/23 08/23/23 08:02 09:39 10:34 Temperature 97.5 F L Pulse Rate 80 71 66 Respiratory 18 18 18 Rate Blood Pressure 114/71 122/78 129/80 O2 Sat by Pulse 100 96 98 Oximetry 08/23/23 12:28 Temperature Pulse Rate 70 Respiratory 16 Rate Blood Pressure 121/75 O2 Sat by Pulse 98 Oximetry Medical Decision Making - Medical Decision Making EKG is interpreted by myself but EKG shows a sinus rhythm at 75 bpm WV interval is 138 QRS is 110 QT interval 366 QTc is 394. Patient's EKG shows no ST segment elevation or depression. Patient has inverted T waves in 3 which was seen before. Patient also has a Q wave in 3 Was pt. sent in by a medical professional or institution (, PA, [employer], urgent care, hospital, or alf...) When possible be specific @ -No Did you speak to anyone other than the patient for history (EMS, parent, family, police, friend...)? What history was obtained from this source @ -No Did you review nursing and triage notes (agree or disagree)? Why? @ -I reviewed and agree with nursing and triage notes Were old charts reviewed (outside hosp., previous admission, EMS record, old EKG, old radiological studies, urgent care reports/EKG's, alf records)? Report findings @ -I reviewed prior lab work and prior charts and this patient Differential Diagnosis (chest pain, altered mental status, abdominal pain women, abdominal pain men, vaginal bleeding, weakness, fever, dyspnea, syncope, headache, dizziness, GI bleed, back pain, seizure, CVA, palpatations, mental health, musculoskeletal)? @ -Differential Dizziness: Differential Back Pain: Strain, zoster, cauda equina syndrome, epidural abscess, vertebral osteomyelitis, discitis, fracture, subluxation, disc herniation, DJD, spinal stenosis, dissection, AAA, pancreatitis, peptic ulcer disease, pyelonephritis, kidney stone, this is not meant to be an all-inclusive list. EKG interpreted by me (3pts min.). @ -As above X-rays interpreted by me (1pt min.). @ -Chest x-ray shows no acute abnormality CT interpreted by me (1pt min.). @ -None done U/S interpreted by me (1pt. min.). @ -None done What testing was considered but not performed or refused? (CT, X-rays, U/S, labs)? Why? @ -None What meds were considered but not given or refused? Why? @ -None Did you discuss the management of the patient with other professionals (professionals i.e. Dr., PA, [employer], lab, RT, psych nurse, social insurance analyst, evp strategy, teacher, consumer safety officer, outsole caser)? Give summary @ -I spoke with Arya Schumacherkassy and he agreed to admit the patient I admitted the patient and wrote admitting orders Was smoking cessation discussed for >3mins.? @ -No Was critical care preformed (if so, how long)? @ -No Were there social determinants of health that impacted care today? How? (Homelessness, low income, unemployed, alcoholism, drug addiction, transportat ion, low edu. Level, literacy, decrease access to med. care, retirement, rehab)? @ -No Was there de-escalation of care discussed even if they declined (Discuss DNR or withdrawal of care, Hospice)? DNR status @ -No What co-morbidities impacted this encounter? (DM, HTN, Smoking, COPD, CAD, Cancer, CVA, ARF, Chemo, Hep., AIDS, mental health diagnosis, sleep apnea, morbid obesity)? @ -None Was patient admitted / discharged? Hospital course, mention meds given and route, prescriptions, significant lab abnormalities, going to OR and other pertinent info. @ -Patient had a urinary tract infection I gave the patient 2 g of Rocephin in the emergency department. Patient's kidney function was also worsened to have or has been in the past so the patient will be admitted for urinary tract infection with renal insufficiency Undiagnosed new problem with uncertain prognosis? @ -No Drug Therapy requiring intensive monitoring for toxicity (Heparin, Nitro, Insulin, Cardizem)? @ -No Were any procedures done? @ -No Diagnosis/symptom? @ -Renal insufficiency Acute, or Chronic, or Acute on Chronic? @ -Acute Uncomplicated (without systemic symptoms) or Complicated (systemic symptoms)? @ -Complicated Side effects of treatment? @ -No Exacerbation, Progression, or Severe Exacerbation? @ -No Poses a threat to life or bodily function? How? (Chest pain, [place], [place], pneumonia, PE, COPD, DKA, ARF, appy, cholecystitis, CVA, Diverticulitis, Homicidal, Suicidal, threat to staff... and all critical care pts) @ -Yes this can lead to electrolyte abnormalities and detrimental arrhythmias. Diagnosis/symptom? @ -Urinary tract infection Acute, or Chronic, or Acute on Chronic? @ -Acute Uncomplicated (without systemic symptoms) or Complicated (systemic symptoms)? @ -Complicated Side effects of treatment? @ -None Exacerbation, Progression, or Severe Exacerbation] @ -No Poses a threat to life or bodily function? @ -No - Lab Data Result diagrams: 08/23/23 08:20 08/23/23 08:20 Lab Results 08/23/23 08/23/23 08/23/23 Range/Units 08:20 08:20 08:20 WBC 8.1 (3.8-10.6) k/uL RBC 4.60 (3.80-5.40) m/uL Hgb 12.9 (11.4-16.0) gm/dL Hct 38.9 (34.0-46.0) % MCV 84.5 (80.0-100.0) fL MCH 28.0 (25.0-35.0) pg MCHC 33.2 (31.0-37.0) g/dL RDW 12.8 (11.5-15.5) % Plt Count 453 H (150-450) k/uL MPV 7.5 Neutrophils % 63 % Lymphocytes % 31 % Monocytes % 4 % Eosinophils % 1 % Basophils % 0 % Neutrophils # 5.1 (1.3-7.7) k/uL Lymphocytes # 2.5 (1.0-4.8) k/uL Monocytes # 0.3 (0-1.0) k/uL Eosinophils # 0.1 (0-0.7) k/uL Basophils # 0.0 (0-0.2) k/uL Sodium 139 (137-145) mmol/L Potassium 4.4 (3.5-5.1) mmol/L Chloride 104 (98-107) mmol/L Carbon Dioxide 22 (22-30) mmol/L Anion Gap 13 mmol/L BUN 35 H (7-17) mg/dL Creatinine 1.82 H (0.52-1.04) mg/dL Est GFR (CKD-EPI)AfAm 35 (>60 ml/min/1.73 sqM) Est GFR (CKD-EPI)NonAf 31 (>60 ml/min/1.73 sqM) Glucose 125 H (74-99) mg/dL Calcium 9.7 (8.4-10.2) mg/dL Total Bilirubin 0.5 (0.2-1.3) mg/dL AST 20 (14-36) U/L ALT 22 (4-34) U/L Alkaline Phosphatase 82 (38-126) U/L Troponin I (0.000-0.034) ng/mL Total Protein 7.2 (6.3-8.2) g/dL Albumin 4.0 (3.5-5.0) g/dL Amylase 57 (30-110) U/L Lipase 151 (23-300) U/L Urine Color Yellow Urine Appearance Turbid H (Clear) Urine pH 6.0 (5.0-8.0) Ur Specific [place] 1.016 (1.001-1.035) Urine Protein 2+ H (Negative) Urine Glucose (UA) Negative (Negative) Urine Ketones Negative (Negative) Urine Blood Trace H (Negative) Urine Nitrite Negative (Negative) Urine Bilirubin Negative (Negative) Urine Urobilinogen <2.0 (<2.0) mg/dL Ur Leukocyte Esterase Large H (Negative) Urine RBC 11 H (0-5) /hpf Urine WBC >182 H (0-5) /hpf Urine WBC Clumps Many H (None) /hpf Ur Squamous Epith Cells 35 H (0-4) /hpf Urine Bacteria Many H (None) /hpf Hyaline Casts 32 H (0-2) /lpf Urine Mucus Moderate H (None) /hpf 08/23/23 Range/Units 08:20 WBC (3.8-10.6) k/uL RBC (3.80-5.40) m/uL Hgb (11.4-16.0) gm/dL Hct (34.0-46.0) % MCV (80.0-100.0) fL MCH (25.0-35.0) pg MCHC (31.0-37.0) g/dL RDW (11.5-15.5) % Plt Count (150-450) k/uL MPV Neutrophils % % Lymphocytes % % Monocytes % % Eosinophils % % Basophils % % Neutrophils # (1.3-7.7) k/uL Lymphocytes # (1.0-4.8) k/uL Monocytes # (0-1.0) k/uL Eosinophils # (0-0.7) k/uL Basophils # (0-0.2) k/uL Sodium (137-145) mmol/L Potassium (3.5-5.1) mmol/L Chloride (98-107) mmol/L Carbon Dioxide (22-30) mmol/L Anion Gap mmol/L BUN (7-17) mg/dL Creatinine (0.52-1.04) mg/dL Est GFR (CKD-EPI)AfAm (>60 ml/min/1.73 sqM) Est GFR (CKD-EPI)NonAf (>60 ml/min/1.73 sqM) Glucose (74-99) mg/dL Calcium (8.4-10.2) mg/dL Total Bilirubin (0.2-1.3) mg/dL AST (14-36) U/L ALT (4-34) U/L Alkaline Phosphatase (38-126) U/L Troponin I <0.012 (0.000-0.034) ng/mL Total Protein (6.3-8.2) g/dL Albumin (3.5-5.0) g/dL Amylase (30-110) U/L Lipase (23-300) U/L Urine Color Urine Appearance (Clear) Urine pH (5.0-8.0) Ur Specific [place] (1.001-1.035) Urine Protein (Negative) Urine Glucose (UA) (Negative) Urine Ketones (Negative) Urine Blood (Negative) Urine Nitrite (Negative) Urine Bilirubin (Negative) Urine Urobilinogen (<2.0) mg/dL Ur Leukocyte Esterase (Negative) Urine RBC (0-5) /hpf Urine WBC (0-5) /hpf Urine WBC Clumps (None) /hpf Ur Squamous Epith Cells (0-4) /hpf Urine Bacteria (None) /hpf Hyaline Casts (0-2) /lpf Urine Mucus (None) /hpf Disposition Clinical Impression: Urinary tract infection, Renal insufficiency Disposition: ADMITTED IP TO THIS HOSP Referrals: Arya Jones MD [Primary Care Provider] - 1-2 days Time of Disposition: 12:42
[2023-08-23] MEDS: SODIUM CHLORIDE 0.9% 500 ML 500 ML IV STA (08:44)
--- NOTE | 2023-08-23 08:55 | XR ---
EXAMINATION TYPE: XR chest 2V DATE OF EXAM: 08/23/2023 8:41 AM CLINICAL INDICATION:Female, 57 years old with history of abdominal pain; COMPARISON: Chest radiographs from 08/10/2019 TECHNIQUE: XR chest 2V Frontal and lateral views of the chest. FINDINGS: Lungs/Pleura: There is no evidence of pleural effusion, focal consolidation, or pneumothorax. Pulmonary vascularity: Unremarkable. Heart/mediastinum: Cardiomediastinal silhouette is unremarkable. Musculoskeletal: No acute osseous pathology. IMPRESSION: No acute cardiopulmonary disease/process.
[2023-08-23 09:10] LABS: Basophils % (A) 0 %; Eosinophils # (A) 0.1 k/uL (0-0.7); Eosinophils % (A) 1 %; HCT 38.9 % (34.0-46.0); HGB 12.9 gm/dL (11.4-16.0); Lymphocytes # (A) 2.5 k/uL (1.0-4.8); Lymphocytes % (A) 31 %; MCHC 33.2 g/dL (31.0-37.0); MCV 84.5 fL (80.0-100.0); Mean Platelet Volume 7.5; Monocytes # (A) 0.3 k/uL (0-1.0); Monocytes % (A) 4 %; Neutrophils # (A) 5.1 k/uL (1.3-7.7); Neutrophils % (A) 63 %; Platelet Count 453 k/uL (150-450); RDW 12.8 % (11.5-15.5); WBC 8.1 k/uL (3.8-10.6)
[2023-08-23 09:19] LABS: ALT 22 U/L (4-34); AST 20 U/L (14-36); African American GFR (CKD) 35 (>60 ml/min/1.73 sqM); Alkaline Phosphatase 82 U/L (38-126); Amylase 57 U/L (30-110); Anion Gap 13 mmol/L; Blood Urea Nitrogen 35 mg/dL (7-17); Calcium 9.7 mg/dL (8.4-10.2); Carbon Dioxide 22 mmol/L (22-30); Chloride 104 mmol/L (98-107); Glucose 125 mg/dL (74-99); Lipase 151 U/L (23-300); Non-African American GFR(CKD) 31 (>60 ml/min/1.73 sqM); Potassium 4.4 mmol/L (3.5-5.1); Sodium 139 mmol/L (137-145); Total Bilirubin 0.5 mg/dL (0.2-1.3); Total Protein 7.2 g/dL (6.3-8.2)
[2023-08-23 09:31] LABS: Appearance,Urine Turbid (Clear); Bacteria,Urine Many /hpf; Bilirubin,Urine Negative (Negative); Blood,Urine Trace (Negative); Color,Urine Yellow; Glucose,Urine (UA) Negative (Negative); Hyaline Casts,Urine 32 /lpf (0-2); Ketones,Urine Negative (Negative); Leukocyte Esterase,Urine Large (Negative); Mucus,Urine Moderate /hpf; Nitrite,Urine Negative (Negative); Protein,Urine 2+ (Negative); RBC,Urine 11 /hpf (0-5); Specific Gravity,Urine 1.016 (1.001-1.035); Squamous Epithelial Cell,Urine 35 /hpf (0-4); Urobilinogen,Urine <2.0 mg/dL (<2.0); WBC,Urine >182 /hpf (0-5)
[2023-08-23] MEDS: cefTRIAXone IN SWFI 1,000 MG/10 ML SYRINGE IVP STA ×2 (12:20→12:26)
[2023-08-23] MEDS: SODIUM CHLORIDE 0.9% 1,000 ML IV ONE (12:52)
--- NOTE | 2023-08-23 16:48 | US ---
EXAMINATION TYPE: US renals and bladder DATE OF EXAM: 08/23/2023 COMPARISON: Prev GB only CLINICAL INDICATION: Female, 57 years old with history of renal insufficiency; UTI, abnormal renal la bs EXAM MEASUREMENTS: Right Kidney: 9.8 x 4.2 x 4.7 cm Left Kidney: 9.7 x 4.6 x 4.5 cm Right Kidney: Appeared wnl, no obstructive uropathy or renal calculus. Cortical medullary differentia tion is maintained. Left Kidney: Appeared wnl , no obstructive uropathy or renal calculus. Cortical medullary differentia tion is maintained. Bladder: wnl Bilateral Jets seen: Yes There is no evidence for hydronephrosis at this point in time. No nephrolithiasis is seen. No reuben s are identified. The urinary bladder is anechoic. Bilateral ureteral jets are seen. IMPRESSION: No evidence for obstructive uropathy or renal contrast.
[2023-08-23] MEDS: IPRATROPIUM-ALBUTEROL 3 ML NEB INHALATION SCH (17:09)
[2023-08-24] MEDS: MONTELUKAST 10 MG TAB PO SCH (08:46)
[2023-08-24] MEDS: LISINOPRIL-HCTZ 10-12.5 MG 1 EACH TAB PO SCH (08:46)
[2023-08-24] MEDS: ASPIRIN 81 MG PO SCH (08:46)
--- NOTE | 2023-08-24 08:54 | CT ---
EXAMINATION TYPE: CT chest wo con DATE OF EXAM: 08/24/2023 COMPARISON: None HISTORY: dyspnea CT DLP: 386.10 mGycm, Automated exposure control for dose reduction was used. CONTRAST: Performed injected with 0 mL of Isovue 300. TECHNIQUE: Axial images were obtained at 5 mm thick sections. Reconstructed images are reviewed on [employer] computer in the coronal plane. FINDINGS: Portion of the thyroid visualized is normal. No suspicious lung nodules or focal infiltrates are present. No enlarged mediastinal or hilar adenopathy is evident. The ascending aorta diameter at the level o f the main pulmonary artery is 3.2 cm. The main pulmonary artery diameter at the bifurcation is 2.[address] sections are obtained through the upper abdomen. There is a small hiatal hernia. Postsurgi sarah changes appear be present at the epigastric region IMPRESSION: 1. No acute pulmonary process
--- NOTE | 2023-08-24 09:39 | HP ---
HISTORY AND PHYSICAL HISTORY OF PRESENT ILLNESS: A 57-year-old white female, came to the hospital for generalized weakness, fatigue, near syncope. She has been fighting off UTI for 2 weeks. She had blood in the urine, dysuria, frequency, urgency, hesitancy for the last week, extreme weakness and fatigue. She currently could not take pain in the right CVA area and could not catch her breath. Denies any chest pain or upper back pain. She had some pain in her right upper quadrant. Denied any fever, chills. Denies any cough, congestion. UA was grossly abnormal for UTI and urosepsis. HOME MEDICINES: Ventolin HFA 2 puffs q.4 hours p.r.n., Motrin 800 t.i.d., Singulair 10 mg daily, [place] 7.5 t.i.d., aspirin 81 daily, lisinopril/hydrochlorothiazide 10/12.5 one daily, Mobic and ibuprofen p.r.n., Paxil 20 mg daily, progesterone 100 mg daily, estradiol 0.5 mg daily. ALLERGIES: Finasteride. PAST MEDICAL HISTORY: Asthma, allergic rhinitis, GERD, reflux, hypertension, history of hiatal hernia, orthopedic surgery, tubal ligation, bladder surgery, uterine ablation, D and C, bilateral carpal tunnel. SOCIAL HISTORY: Secondhand smoke many years ago. No smoke currently. No alcohol. No drugs. Mom had diabetes. Sister had cancer. PHYSICAL EXAMINATION: GENERAL: Obese white female, well developed, well nourished, mild distress. HEENT: Normocephalic, atraumatic. Pupils equal, round, and reactive. CARDIOVASCULAR: S1, S2. LUNGS: Wheezes at the bases. No rales or rhonchi. ABDOMEN: Soft, nontender. Some CVA tenderness in the right. Distended. Obesity. NEUROLOGIC: Cranial nerves intact. PSYCH: Fair mood and affect. VITAL SIGNS: Temp 97.5, pulse 70s to 80s, respiratory rate 18 to 22, blood pressure 114 to 129/71 to 80, O2 is 96% to 100%. DIAGNOSTIC DATA: EKG, no ST-T changes. Chest x-ray was negative. LABORATORY DATA: BUN 35, creatinine 1.2. White count 3.1, hemoglobin 12.9. UA is greater than 182 white cells, many bacteria, moderate mucus. ASSESSMENT: 1. Urinary tract infection, probable sepsis secondary to urinary tract infection. 2. Tubular necrosis. 3. Acute renal insufficiency. 4. Acute kidney injury. Rehydrate. IV Rocephin continue. Urine culture pending. 5. Shortness of breath and atypical chest pain, for which we will do another CAT scan. Echo ordered. 6. Prognosis is guarded. MMODL / IJN: [id number] /
[2023-08-24] MEDS: NON FORMULARY DRUG (Progesterone, Micronized [Progesterone] 100 MG Capsule) PO SCH (09:55)
--- NOTE | 2023-08-24 09:58 | CA ---
Transthoracic Echo Report Name: Tatiana Morlilo Age: 57 Gender: F : 1965 Exam Date: 08/23/2023 17:38 Exam Location: [facility] Ht (in): 67 Wt (lb): 206 Ordering Physician: Arya Jones MD Attending/Referring Phys: Government Clerk Jessica Broussard RDCS Procedure CPT: Indications: abnormal cad Cardiac Hx: Technical Quality: Good Contrast 1: Total Dose (mL): Contrast 2: Total Dose (mL): MEASUREMENTS (Male / Female) Normal Values 2D ECHO LV Diastolic Diameter PLAX 5.4 cm 4.2 - 5.9 / 3.9 - 5.3 cm LV Systolic Diameter PLAX 3.6 cm IVS Diastolic Thickness 0.7 cm 0.6 - 1.0 / 0.6 - 0.9 cm LVPW Diastolic Thickness 0.8 cm 0.6 - 1.0 / 0.6 - 0.9 cm LV Relative Wall Thickness 0.3 RV Internal Dim ED PLAX 3.0 cm LA Systolic Diameter LX 3.3 cm 3.0 - 4.0 / 2.7 - 3.8 cm LV Diastolic Volume MOD 4C 106.2 cm??? LV Systolic Volume MOD 4C 38.2 cm??? LV Ejection Fraction MOD 4C 64.0 % LV Cardiac Index MOD 4C 2327.4 cm???/min???m??? LV Diastolic Length 4C 7.1 cm LV Systolic Length 4C 5.4 cm LV Diastolic Volume MOD 2C 82.3 cm??? LV Systolic Volume MOD 2C 37.4 cm??? LV Ejection Fraction MOD 2C 54.5 % LV Cardiac Index MOD 2C 1534.8 cm???/min???m??? LV Diastolic Length 2C 7.7 cm LV Systolic Length 2C 5.9 cm LA Volume 58.9 cm??? 18 - 58 / 22 - 52 cm??? LA Volume Index 27.6 cm???/m??? 16 - 28 cm???/m??? M-MODE Aortic Root Diameter MM 2.8 cm MV E Point Septal Separation 0.3 cm DOPPLER AV Peak Velocity 157.7 cm/s AV Peak Gradient 9.9 mmHg MV Area PHT 3.3 cm??? Mitral E Point Velocity 104.7 cm/s Mitral A Point Velocity 93.9 cm/s Mitral E to A Ratio 1.1 MV Deceleration Time 227.4 ms LV E' Lateral Velocity 10.6 cm/s Mitral E to LV E' Lateral Ratio 9.8 LV E' Septal Velocity 10.2 cm/s Mitral E to LV E' Septal Ratio 10.3 TR Peak Velocity 242.1 cm/s TR Peak Gradient 23.4 mmHg Right Ventricular Systolic Press 31.0 mmHg FINDINGS Left Ventricle Left ventricular ejection fraction is estimated at 55-60 %. Mildly increased left ventricular diastolic diameter. Left ventricular wall thickness normal. No obvious regional wall motion abnormalities. Right Ventricle Normal right ventricular size. Right ventricular systolic pressure within normal limits. Right Atrium Normal right atrial size. Left Atrium Mildly increased left atrial volume. Mildly increased left atrial area. Mitral Valve Structurally normal mitral valve. No mitral stenosis or prolapse. Trace mitral regurgitation. Aortic Valve Trileaflet aortic valve. No aortic valve stenosis or regurgitation. Tricuspid Valve Structurally normal tricuspid valve. Mild tricuspid regurgitation. Pulmonic Valve Pulmonic valve not well visualized. No pulmonic regurgitation. Pericardium No pericardial effusion. Aorta Normal size aortic root and proximal ascending aorta. CONCLUSIONS Left ventricular ejection fraction 55-60% Mild increased left ventricular wall thickness Mildly dilated left atrium Trace mitral regurgitation Mild tricuspid regurgitation No pericardial effusion Previewed by: Dr. Bi Patterson DO (Electronically Signed) Final Date: 24 August 2023 09:57
[2023-08-24] MEDS: PARoxetine 20 MG TAB PO SCH (11:04)
[2023-08-24] MEDS: HYDROcodone/APAP 7.5-325MG 1 EACH TAB PO PRN (15:19)
[2023-08-24] MEDS: diphenhydrAMINE 25 MG CAP PO PRN (20:19)
[2023-08-25 15:01] LABS: Basophils % (A) 1 %; Eosinophils # (A) 0.1 k/uL (0-0.7); Eosinophils % (A) 1 %; HCT 37.2 % (34.0-46.0); HGB 11.5 gm/dL (11.4-16.0); Lymphocytes # (A) 2.4 k/uL (1.0-4.8); Lymphocytes % (A) 35 %; MCV 87.2 fL (80.0-100.0); Mean Platelet Volume 6.7; Monocytes # (A) 0.2 k/uL (0-1.0); Monocytes % (A) 3 %; Neutrophils # (A) 4.2 k/uL (1.3-7.7); Neutrophils % (A) 60 %; Platelet Count 429 k/uL (150-450); RBC 4.27 m/uL (3.80-5.40); RDW 12.8 % (11.5-15.5); WBC 7.1 k/uL (3.8-10.6)
[2023-08-25 15:19] LABS: ALT 18 U/L (4-34); AST 18 U/L (14-36); African American GFR (CKD) 60 (>60 ml/min/1.73 sqM); Albumin 3.8 g/dL (3.5-5.0); Albumin/Globulin Ratio 1.4; Alkaline Phosphatase 67 U/L (38-126); Anion Gap 13 mmol/L; Blood Urea Nitrogen 20 mg/dL (7-17); Calcium 9.3 mg/dL (8.4-10.2); Carbon Dioxide 21 mmol/L (22-30); Chloride 107 mmol/L (98-107); Globulin 2.8 g/dL; Glucose 115 mg/dL (74-99); Non-African American GFR(CKD) 52 (>60 ml/min/1.73 sqM); Potassium 4.5 mmol/L (3.5-5.1); Sodium 141 mmol/L (137-145); Total Bilirubin 0.2 mg/dL (0.2-1.3); Total Protein 6.6 g/dL (6.3-8.2)
--- NOTE | 2023-08-25 20:20 | PN ---
PROGRESS NOTE DATE OF SERVICE: 08/24/2023 SUBJECTIVE: This is a 57-year-old white female, remains on DuoNeb, aspirin, Rocephin, Benadryl, Estrace, [place], Zestoretic, Singulair, Progesterone, and Paxil. She is getting IV antibiotics for UTI with possible pyelonephritis. She is slowly improving. OBJECTIVE: CARDIOVASCULAR: S1, S2. LUNGS: Clear. GI: Soft. HEMATOLOGY: Negative for Homans. ASSESSMENT: UTI without pyelonephritis. She has history of asthma, nicotine addiction, hypertension, IV antibiotics. Wait for urine culture. Possible discharge home soon. MMODL / IJN: [id number] /
--- NOTE | 2023-08-25 21:56 | PN ---
PROGRESS NOTE SUBJECTIVE: A 57-year-old white female, remains on ceftriaxone. She has gram-negative bacilli over 100,000 units in her urine. Her kidney function is much better today with fluids. She had acute kidney injury due to dehydration, due to sepsis from large gram-negative bacilli UTI. OBJECTIVE: VITAL SIGNS: Blood pressure 100/66, O2 is 96% on room air, pulse 53, respiratory rate 16 to 18, temp 98. CARDIOVASCULAR: S1, S2. LUNGS: Scattered rhonchi. Hematology: Negative Homans. GI: Soft. NEUROLOGIC: Alert and oriented x3. Pupils equal, round, reactive. ASSESSMENT: Urinary tract infection, systemic inflammatory response syndrome with severe dehydration, acute kidney injury with prerenal azotemia, history of hypertension, chronic obstructive pulmonary disease, nicotine addiction. Continue current treatments. Prognosis guarded. IV Rocephin. Wait for Infectious Disease consult. Wait for the final culture. To send home on oral antibiotics. She agreed to go home tomorrow on oral antibiotics since her kidney function has improved. Prognosis guarded. MMODL / IJN: [id number] /
[2023-08-25 22:24] LABS: Glucose,Whole Blood 138 mg/dL (70-110)
[2023-08-26 02:35] VITALS: RESP 16
[2023-08-26 07:36] VITALS: BP 108/72; TEMP 98
[2023-08-26 09:38] VITALS: PULSE 78
--- NOTE | 2023-08-26 17:21 | P.DS ---
Providers Date of admission: 08/23/23 12:44 Expected date of discharge: 08/26/23 Attending physician: Arya Jones [facility] Course: Hospital course: I am rounding for Arya Jones. August 26, 2023: Patient admitted with UTI. Today doing well. Eating well. No urinary symptoms. No fever no chills. Urine cultures come back showing E. coli. Patient already received 4 days of IV antibiotics. Discussed with patient. Keen to go home. Patient told to stop for Motrin. She already takes Mobic. Repeat BMP outpatient next week Discussion and discharge planning more than 35 minutes On exam: 98, 70, 16, 108 x 72, 96% room air Reclining bed comfortable Abdomen: Soft nontender Lungs: Clear Cardiovascular first second sound normal, Psych: AOx3 INVESTIGATIONS, reviewed in the clinical context: August 24: White count 7.1 hemoglobin 11.5 platelets 429 potassium 4.5 BUN 20 creatinine 1.17 Urine culture: E. coli Assessment plan: -Acute UTI with cystitis secondary to E. coli Patient completed 4 days of IV ceftriaxone -Obesity BMI 32.3 Weight loss measures -Acute kidney injury likely ATN Admission creatinine was 1.82. Down to 1.17. -Possible chronic kidney disease, stage II likely nephrosclerosis Outpatient BMP to be checked. His creatinine still coming down. Patient told to stop Motrin/ibuprofen -Essential hypertension Zestoretic -Primary osteoarthritis Mobic -Depression anxiety Paxil Disposition: Home Outpatient labs: BMP: Next week Plan - Discharge Summary Discharge Rx Participant: No New Discharge Prescriptions: Continue Albuterol Inhaler [Ventolin Hfa Inhaler] 2 puff INHALATION RT-Q6H PRN PRN Reason: Shortness Of Breath Montelukast Sodium [Singulair] 10 mg PO DAILY HYDROcodone/APAP 7.5-325MG [[place] 7.5-325] 1 tab PO TID PRN PRN Reason: Pain Aspirin EC [Ecotrin Low Dose] 81 mg PO DAILY PARoxetine [Paxil] 20 mg PO DAILY Lisinopril-Hctz 10-12.5 mg [Zestoretic 10-12.5] 1 tab PO DAILY Progesterone, Micronized [Progesterone] 100 mg PO DAILY Meloxicam [Mobic] 7.5 mg PO DAILY estradioL [Estrace] 0.5 mg PO DAILY Discontinued Ibuprofen [Motrin] 800 mg PO TID PRN PRN Reason: Pain Discharge Medication List Albuterol Inhaler [Ventolin Hfa Inhaler] 2 puff INHALATION RT-Q6H PRN 08/29/15 [History] Montelukast Sodium [Singulair] 10 mg PO DAILY 01/30/16 [History] HYDROcodone/APAP 7.5-325MG [[place] 7.5-325] 1 tab PO TID PRN 06/15/19 [History] Aspirin EC [Ecotrin Low Dose] 81 mg PO DAILY 08/23/23 [History] Lisinopril-Hctz 10-12.5 mg [Zestoretic 10-12.5] 1 tab PO DAILY 08/23/23 [History] Meloxicam [Mobic] 7.5 mg PO DAILY 08/23/23 [History] PARoxetine [Paxil] 20 mg PO DAILY 08/23/23 [History] Progesterone, Micronized [Progesterone] 100 mg PO DAILY 08/23/23 [History] estradioL [Estrace] 0.5 mg PO DAILY 08/23/23 [History] Follow up Appointment(s)/Referral(s): Arya Jones MD [Primary Care Provider] - 1-2 days Patient Instructions/Handouts: Urinary Tract Infection in Women (DC) Discharge Disposition: HOME SELF-CARE
== END 2023-08-26 11:55 | disposition home or self-care (01) ==
LOC: EC 08:00 → 6NMEDSUR 12:44
PROVIDERS: ADMIT Family Medicine; ATTEND Family Medicine
DX: N30.90 Cystitis, unspecified without hematuria (principal); B96.20 Unspecified Escherichia coli [E. coli] as the cause of diseases classified elsewhere; N17.0 Acute kidney failure with tubular necrosis; R06.02 Shortness of breath; R07.89 Other chest pain; K21.9 Gastro-esophageal reflux disease without esophagitis; I10 Essential (primary) hypertension; J44.9 Chronic obstructive pulmonary disease, unspecified; M19.91 Primary osteoarthritis, unspecified site; F32.A Depression, unspecified; F41.9 Anxiety disorder, unspecified; F17.200 Nicotine dependence, unspecified, uncomplicated; E66.9 Obesity, unspecified; Z68.32 Body mass index [BMI] 32.0-32.9, adult; Z79.899 Other long term (current) drug therapy; Z79.82 Long term (current) use of aspirin; Z79.1 Long term (current) use of non-steroidal anti-inflammatories (NSAID)
CPT/HCPCS: 96365; 96366 ×2; 96361 ×2; 96374; 99285; 36415; 94640 ×5; 93005; 93306; 80053 ×2; 82150; 83690; 84484; 85025 ×2; 81001; 87040; 87086; 87077; 87186; 71046; 76770; 71250; G0378 ×4; J0696 ×4

== ENCOUNTER → 2023-12-23 | Outpatient (CLI) | payer BC ==
--- NOTE | 2023-12-23 14:54 | MM ---
Reason for Exam: Follow-up at short interval from prior study. Last mammogram was performed 1 year(s) and 11 month(s) ago. Patient History: Menarche at age 14. First Full-Term at age 16. Postmenopausal. Hormonal Contraceptives for 6 years from age 25 until age 31. Sister had breast cancer, age 49. Sister had breast cancer, age 49. Sister had breast cancer, age 59. Risk Values: Amee 5 year model risk: 6.1%. NCI Lifetime model risk: 32.3%. Prior Study Comparison: 10/15/2016 Bilateral Screening Mammogram, [facility]. 11/29/2017 Bilateral Screening Mammogram, [facility]. 02/06/2020 Bilateral Screening Mammogram, [facility]. 02/19/2022 Bilateral MG screening mammo w CAD, [facility]. Tissue Density: There are scattered areas of fibroglandular density. Findings: Analyzed By CAD. No evidence for mass or distortion. Chronic nodularity right breast. No suspicious microcalcifications identified. Overall Assessment: Benign, BI-RAD 2 Management: Screening Mammogram of both breasts in 1 year. . Results were given to the patient verbally at the time of exam. Patient should continue monthly self-breast exams. A clinical breast exam by your physician is recommended on an annual basis. This exam should not preclude additional follow-up of suspicious palpable abnormalities. Note on Amee scores and lifetime risk: 1. A Amee score greater than 3% is considered moderate risk. If this is the case, consider specialist referral to assess eligibility for a risk reducing agent. 2. If overall lifetime risk for the development of breast cancer is 20% or higher, the patient may qualify for future screening with alternating mammogram and breast MRI. Electronically signed and approved by: Natan Pastor M.D. Radiologis
== END | disposition home or self-care (01) ==
LOC: RADMAMWWP 14:27
PROVIDERS: ATTEND Family Medicine
DX: Z87.898 Personal history of other specified conditions (principal); Z80.3 Family history of malignant neoplasm of breast; Z78.0 Asymptomatic menopausal state; R92.323 Mammographic fibroglandular density, bilateral breasts
CPT/HCPCS: 77062; 77066

== ENCOUNTER 2024-03-21 08:27 | Emergency (ER) | payer BC ==
[2024-03-21 08:35] VITALS: RESP 18
--- NOTE | 2024-03-21 09:01 | ED ---
General Adult HPI - General Chief complaint: Nausea/Vomiting/Diarrhea Stated complaint: vomiting Time Seen by Provider: 03/21/24 08:41 Source: patient Mode of arrival: ambulatory Limitations: no limitations - History of Present Illness Initial comments: Dictation was produced using [employer] dictation software. please excuse any grammatical, word or spelling errors. Chief Complaint: 58-year-old female presents to the emergency department with chills body aches fatigue History of Present Illness: Patient 58-year-old female since the last couple days she has been having symptoms of bodyaches fatigue vomiting nausea cough runny nose. Denies any sick contacts. Patient states she has some degree of kidney disease hypertension and asthma. She has some mild chest pain abdominal cramping. The ROS documented in this emergency department record has been reviewed and confirmed by me. Those systems with pertinent positive or negative responses have been documented in the HPI. All other systems are other negative and/or noncontributory. - Related Data Home Medications Medication Instructions Recorded Confirmed Albuterol Inhaler [Ventolin Hfa 2 puff INHALATION RT-Q6H PRN 08/29/15 08/23/23 Inhaler] Montelukast Sodium [Singulair] 10 mg PO DAILY 01/30/16 08/23/23 HYDROcodone/APAP 7.5-325MG [[place] 1 tab PO TID PRN 06/15/19 08/23/23 7.5-325] Aspirin EC [Ecotrin Low Dose] 81 mg PO DAILY 08/23/23 08/23/23 Lisinopril-Hctz 10-12.5 mg 1 tab PO DAILY 08/23/23 08/23/23 [Zestoretic 10-12.5] Meloxicam [Mobic] 7.5 mg PO DAILY 08/23/23 08/23/23 PARoxetine [Paxil] 20 mg PO DAILY 08/23/23 08/23/23 Progesterone, Micronized 100 mg PO DAILY 08/23/23 08/23/23 [Progesterone] estradioL [Estrace] 0.5 mg PO DAILY 08/23/23 08/23/23 Allergies Allergy/AdvReac Type Severity Reaction Status Date / Time finerenone [From Kerendia] Allergy Rash/Hives Verified 03/21/24 08:35 all over body Review of Systems ROS Statement: Those systems with pertinent positive or pertinent negative responses have been documented in the HPI. ROS Other: All systems not noted in ROS Statement are negative. Past Medical History Past Medical History: Asthma, GERD/Reflux, Hypertension Additional Past Medical History / Comment(s): doctor watching BP-no rx, HIATAL HERNIA History of Any Multi-Drug Resistant Organisms: MRSA Date of last positivie culture/infection: 7-10 yrs ago MDRO Source:: boil on buttocks Past Surgical History: Bladder Surgery, Orthopedic Surgery, Tubal Ligation, Uterine Ablation Additional Past Surgical History / Comment(s): eri carpal tunnel, cysts removed from both hands, EGD, D & C IN OCTOBER 2015 Past Anesthesia/Blood Transfusion Reactions: No Reported Reaction Past Psychological History: No Psychological Hx Reported Smoking Status: Never smoker Past Alcohol Use History: Occasional Past Drug Use History: None Reported - Past Family History Mother Family Medical History: Cancer, Diabetes Mellitus Sister(s) Family Medical History: Cancer General Exam - General Exam Comments Initial Comments: PHYSICAL EXAM: General Impression: Alert and oriented x3, not in acute distress HEENT: Normocephalic atraumatic, extra-ocular movements intact, pupils equal and reactive to light bilaterally, mucous membranes moist. Cardiovascular: Heart regular rate and rhythm Chest: Able to complete full sentences, no retractions, no tachypnea Abdomen: abdomen soft, non-tender, non-distended, no organomegaly Musculoskeletal: Pulses present and equal in all extremities, no peripheral edema Motor: no focal deficits noted Neurological: CN II-XII grossly intact, no focal motor or sensory deficits noted Skin: Intact with no visualized rashes Psych: Normal affect and mood Limitations: no limitations Course Vital Signs 03/21/24 08:32 Temperature 97.6 F Pulse Rate 89 Respiratory 18 Rate Blood Pressure 109/73 O2 Sat by Pulse 98 Oximetry Medical Decision Making - Medical Decision Making Was pt. sent in by a medical professional or institution (, PA, ADMINISTRATIVE SUPPORT SPECIALIST, urgent care, hospital, or correction...) When possible be specific @ -No Did you speak to anyone other than the patient for history (EMS, parent, family, police, friend...)? What history was obtained from this source @ -No Did you review nursing and triage notes (agree or disagree)? Why? @ -I reviewed and agree with nursing and triage notes Were old charts reviewed (outside hosp., previous admission, EMS record, old EKG, old radiological studies, urgent care reports/EKG's, correction records)? Report findings @ -No old charts were reviewed Differential Diagnosis (chest pain, altered mental status, abdominal pain women, abdominal pain men, vaginal bleeding, musculoskeletal, weakness, fever, dyspnea, syncope, headache, dizziness, GI bleed, back pain, seizure, CVA, palpatations, mental health)? @ -Differential Weakness: Hypoglycemia, shock, sepsis, hyponatremia, anemia, infection, AL, ETOH, adverse medicine reaction, overdose, stroke, this is not meant to be an all-inclusive list. EKG interpreted by me (3pts min.). @ -None done X-rays interpreted by me (1pt min.). @ -Acute abdominal series chest x-ray shows no acute processes CT interpreted by me (1pt min.). @ -None done U/S interpreted by me (1pt. min.). @ -None done What testing was considered but not performed or refused? (CT, X-rays, U/S, labs)? Why? @ -None What meds were considered but not given or refused? Why? @ -None Was smoking cessation discussed for >3mins.? @ -No Were there social determinants of health that impacted care today? How? (Homelessness, low income, unemployed, alcoholism, drug addiction, transportation, low edu. Level, literacy, decrease access to med. care, care home, rehab)? @ -No Was there de-escalation of care discussed even if they declined (Discuss DNR or withdrawal of care, Hospice)? DNR status @ -No What co-morbidities impacted this encounter? (DM, HTN, Smoking, COPD, CAD, Cancer, CVA, ARF, Chemo, Hep., AIDS, mental health diagnosis, sleep apnea, morbid obesity)? @ -None Was patient admitted / discharged? Hospital course, mention meds given and route, prescriptions, significant lab abnormalities, going to OR and other pertinent info. @ -58-year-old well-appearing female presents to the emergency department for the symptoms concerning for viral syndrome. Vital signs upon arrival are within acceptable limits. Laboratory evaluation obtained. Labs unremarkable. Viral testing is negative. Imaging studies are negative. Patient reevaluated at bedside at 10:35 AM found to be in stable mental condition. Patient discharged advised follow-up with primary care doctor. Patient requesting work note for multiday excuse Did you discuss the management of the patient with other professionals (professionals i.e. , PA, ADMINISTRATIVE SUPPORT SPECIALIST, lab, RT, psych nurse, social services, soft sugar operator head, teacher, operations officer afloat, telephonic case manager)? Give summary @ -No Was critical care preformed (if so, how long)? @ -No Undiagnosed new problem with uncertain prognosis? @ -No Drug Therapy requiring intensive monitoring for toxicity (Heparin, Nitro, Insulin, Cardizem)? @ -No Were any procedures done? @ -No Diagnosis/symptom? Acute, or Chronic, or Acute on Chronic? Uncomplicated (with out systemic symptoms) or Complicated (systemic symptoms)? @ -Viral syndrome Side effects of treatment? @ -No Exacerbation, Progression, or Severe Exacerbation? @ -No Poses a threat to life or bodily function? How? (Chest pain, [place], AL, pneumonia, PE, COPD, DKA, ARF, appy, cholecystitis, CVA, Diverticulitis, Homicidal, Suicidal, threat to staff... and all critical care pts) @ -No - Lab Data Result diagrams: 03/21/24 09:04 03/21/24 09:04 Lab Results 03/21/24 03/21/24 03/21/24 Range/Units 09:04 09:04 09:04 WBC 4.5 (3.8-10.6) k/uL RBC 4.71 (3.80-5.40) m/uL Hgb 12.7 (11.4-16.0) gm/dL Hct 39.1 (34.0-46.0) % MCV 83.0 (80.0-100.0) fL MCH 27.0 (25.0-35.0) pg MCHC 32.5 (31.0-37.0) g/dL RDW 13.3 (11.5-15.5) % Plt Count 330 (150-450) k/uL MPV 7.3 Neutrophils % 46 % Lymphocytes % 43 % Monocytes % 5 % Eosinophils % 3 % Basophils % 1 % Neutrophils # 2.1 (1.3-7.7) k/uL Lymphocytes # 1.9 (1.0-4.8) k/uL Monocytes # 0.2 (0-1.0) k/uL Eosinophils # 0.2 (0-0.7) k/uL Basophils # 0.0 (0-0.2) k/uL Sodium 138 (137-145) mmol/L Potassium 5.5 H (3.5-5.1) mmol/L Chloride 108 H (98-107) mmol/L Carbon Dioxide 20 L (22-30) mmol/L Anion Gap 10 mmol/L BUN 28 H (7-17) mg/dL Creatinine 1.34 H (0.52-1.04) mg/dL Est GFR (CKD-EPI)AfAm 51 (>60 ml/min/1.73 sqM) Est GFR (CKD-EPI)NonAf 44 (>60 ml/min/1.73 sqM) Glucose 109 H (74-99) mg/dL Calcium 9.8 (8.4-10.2) mg/dL Influenza Type A (PCR) Not Detected (Not Detectd) Influenza Type B (PCR) Not Detected (Not Detectd) RSV (PCR) Not Detected (Not Detectd) SARS-CoV-2 (PCR) Not Detected (Not Detectd) Disposition Clinical Impression: Viral syndrome Disposition: HOME SELF-CARE Condition: Good Instructions (If sedation given, give patient instructions): Cold Symptoms (ED) Is patient prescribed a controlled substance at d/c from ED?: No Referrals: Robert Sterling MD [Primary Care Provider] - 1-2 days Time of Disposition: 10:38
[2024-03-21 09:37] LABS: Basophils % (A) 1 %; Eosinophils # (A) 0.2 k/uL (0-0.7); Eosinophils % (A) 3 %; HCT 39.1 % (34.0-46.0); HGB 12.7 gm/dL (11.4-16.0); Lymphocytes # (A) 1.9 k/uL (1.0-4.8); Lymphocytes % (A) 43 %; MCHC 32.5 g/dL (31.0-37.0); Mean Platelet Volume 7.3; Monocytes # (A) 0.2 k/uL (0-1.0); Monocytes % (A) 5 %; Neutrophils # (A) 2.1 k/uL (1.3-7.7); Neutrophils % (A) 46 %; Platelet Count 330 k/uL (150-450); RBC 4.71 m/uL (3.80-5.40); RDW 13.3 % (11.5-15.5); WBC 4.5 k/uL (3.8-10.6)
[2024-03-21 09:44] LABS: African American GFR (CKD) 51 (>60 ml/min/1.73 sqM); Anion Gap 10 mmol/L; Blood Urea Nitrogen 28 mg/dL (7-17); Calcium 9.8 mg/dL (8.4-10.2); Carbon Dioxide 20 mmol/L (22-30); Chloride 108 mmol/L (98-107); Glucose 109 mg/dL (74-99); Non-African American GFR(CKD) 44 (>60 ml/min/1.73 sqM); Sodium 138 mmol/L (137-145)
[2024-03-21 10:14] LABS: Potassium 5.5 mmol/L (3.5-5.1)
--- NOTE | 2024-03-21 10:17 | XR ---
EXAMINATION TYPE: XR abdomen acute w cxr DATE OF EXAM: 03/21/2024 9:52 AM CLINICAL INDICATION: Female, 58 years old with history of abdominal pain, nausea; COMPARISON: None. TECHNIQUE: Two radiographic views of the abdomen (upright and supine) and a frontal chest radiograph were obtained. FINDINGS CHEST: Lungs/Pleura: The lungs are clear. There is no evidence of pleural effusion, focal consolidation or p neumothorax. Mediastinum: Unremarkable. Vasculature: Normal. Heart: Normal in size. Musculoskeletal: The osseous structures are intact. Other findings: No significant. FINDINGS ABDOMEN: Bowel gas pattern: Normal without dilated loops of small or large bowel. Fecal material and gas are d emonstrated throughout the colon and rectum. Abnormal calcifications: None. Musculoskeletal: Normal. Other: None. IMPRESSION: 1. No radiographic evidence for acute abdominal process. 2. No acute cardiopulmonary process [facility], , 03/21/2024 10:15 AM
[2024-03-21 10:57] VITALS: BP 125/86; PULSE 88; TEMP 98
== END 2024-03-21 10:57 | disposition home or self-care (01) ==
LOC: EC 08:27
CPT/HCPCS: 36415; 74022; 80048; 85025; 87636; 99284

== ENCOUNTER → 2024-05-26 | Outpatient (CLI) | payer BC ==
--- NOTE | 2024-05-26 21:19 | US ---
EXAMINATION TYPE: US kidneys/renal and bladder DATE OF EXAM: 05/26/2024 COMPARISON: 08/23/2023 renal ultrasound CLINICAL INDICATION: Female, 58 years old with history of N28.9 DISORDER OF KIDNEY AND URETER, UNSPEC IFIED; Patient denies any signs, symptoms, or relevant history TECHNIQUE: Grayscale imaging of the bilateral kidneys and urinary bladder: FINDINGS: EXAM MEASUREMENTS: Right Kidney: 8.7 x 4.1 x 5.1 cm Left Kidney: 9.7 x 5.2 x 5.1 cm Post Void Residual Volume: NA mL Right Kidney: wnl, no evidence for hydronephrosis, mass or renal calculus. Left Kidney: wnl, no evidence for hydronephrosis, mass or renal calculus. Bladder: wnl Bilateral Jets seen: Yes Normal Post Void Residual: NA There is no evidence for hydronephrosis at this point in time. No nephrolithiasis is seen. No reuben s are identified. The urinary bladder is not greatly distended. IMPRESSION: No hydronephrosis is seen bilaterally. [facility], , 05/26/2024 9:17 PM
== END | disposition home or self-care (01) ==
LOC: RADUSWWP 15:11
PROVIDERS: ATTEND Family Medicine
DX: N18.32 Chronic kidney disease, stage 3b (principal); N28.9 Disorder of kidney and ureter, unspecified
CPT/HCPCS: 76770

== ENCOUNTER 2024-07-27 08:30 | Emergency (ER) | payer BC ==
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
[2024-07-27 10:24] VITALS: BP 148/77; PULSE 66; RESP 18; TEMP 97.8
== END 2024-07-27 10:08 | disposition home or self-care (01) ==
LOC: EC 08:30
DX: M25.512 Pain in left shoulder (principal); V49.9XXA Car occupant (driver) (passenger) injured in unspecified traffic accident, initial encounter; Y92.410 Unspecified street and highway as the place of occurrence of the external cause
CPT/HCPCS: 99284